=== PATIENT | male | born 1965 | race Caucasian/White ===

== ENCOUNTER 2018-05-07 01:57 | Emergency (ER) | payer OTHER ==
[~2018-05-07] VITALS: Ht 172.7 cm; Wt 63.5 kg
[~2018-05-07 01:57] MED LIST: AMOX250 PO; AMOX500 PO; BENZ100A PO; BUPR100ER PO; CALCNI; CIPR500 PO; CLIN300 PO; CYCL10 PO; Cleocin HCl150 MG PO; DOXY100 PO; HYDACE5 PO; HYDR1TAB94 PO; ITRACONAZOLE PO; LOPE2C PO; Monodox100 MG PO; NAPR550 PO; NOSE SPRAY; Norco 5-325 Ta1 EACH PO; OXYACE5T PO; PENVK500 PO; RXCYCL10 PO; RXERYTOPTH OP; RXHYDACE PO; RXNAPNA550 PO; RXOXYACE PO; TESTOSTERON IM; TRAZ50 PO
[2018-05-07 04:27] LABS: Source, Urine Clean Catch
[2018-05-07 04:30] LABS: Bilirubin, Urine Neg (Neg); Blood, Urine Neg (Neg); Glucose Qualitative, Urine Neg (Neg); Ketones, Urine Neg (Neg); Leukocyte Esterase, Urine 1+ (Neg); Nitrite, Urine Neg (Neg); Protein, Urine 2+ (Neg); Specific Gravity, Urine 1.025 (1.003-1.022); Urobilinogen, Urine NORM (Normal)
[2018-05-07 04:31] LABS: Appearance, Urine Clear (Clear); Color, Urine Yellow (P-Yellow)
[2018-05-07 04:36] LABS: Amorphous Light ({null, 0-Heavy}); Bacteria Few /hpf; Hyaline Casts 50-100 /lpf (0-2); Mucus Light ({null, 0-Heavy}); Red Blood Cells, Urine Not Seen /hpf (0-2); Squamous Epithelial Cells Few /hpf (Few)
[2018-05-07] MEDS ORDERED: BACI500TO TOP (05:03)
== END 2018-05-07 05:12 | disposition home or self-care (01) ==
LOC: ER 01:57
PROVIDERS: Emergency Medicine
DX: L98.9 Disorder of the skin and subcutaneous tissue, unspecified (principal); R39.15 Urgency of urination; R39.89 Other symptoms and signs involving the genitourinary system; Z88.8 Allergy status to other drugs, medicaments and biological substances; F17.210 Nicotine dependence, cigarettes, uncomplicated; F32.9 Major depressive disorder, single episode, unspecified
CPT/HCPCS: 81001; 87086; 99283

== ENCOUNTER 2018-05-10 17:01 | Emergency (ER) | payer OTHER ==
[~2018-05-10] VITALS: Ht 172.7 cm; Wt 70.8 kg
[~2018-05-10 17:01] MED LIST changes: +BACI500TO TOP
[2018-05-10 17:39] LABS: BASOPHILS ABSOLUTE AUTO 0.04 K/mm3 (0.00-0.23); BASOPHILS PERCENT AUTO 1 % (0-2); EOSINOPHILS ABSOLUTE AUTO 0.33 K/mm3 (0.00-0.68); EOSINOPHILS PERCENT AUTO 4 % (0-6); Hemoglobin 12.2 g/dL (13.5-17.5); IMMATURE GRAN ABSOLUTE AUTO 0.02 K/mm3 (0.00-0.10); IMMATURE GRAN PERCENT AUTO 0 % (0-1); LYMPHOCYTES ABSOLUTE AUTO 1.48 K/mm3 (0.84-5.20); LYMPHOCYTES PERCENT AUTO 20 % (21-46); MONOCYTES ABSOLUTE AUTO 0.57 K/mm3 (0.16-1.47); MONOCYTES PERCENT AUTO 8 % (4-13); Mean Corpuscular HGB 28.5 pg (26.0-34.0); Mean Corpuscular HGB Conc 32.1 g/dL (31.5-36.5); Mean Corpuscular Volume 89 fL (80-100); Mean Platelet Volume 8.8 fL (9.1-12.4); NEUTROPHILS ABSOLUTE AUTO 5.03 K/mm3 (1.96-9.15); NEUTROPHILS PERCENT AUTO 67 % (41-73); Platelet Count 298 K/mm3 (150-400); RDW Coefficient Variation 12.3 % (11.7-14.2); RDW Standard Deviation 40.4 fL (35.1-46.3); Red Blood Cell Count 4.28 M/mm3 (4.30-5.90); White Blood Cell Count 7.47 K/mm3 (4.00-11.30)
[2018-05-10 17:52] LABS: Source, Urine Clean Catch
[2018-05-10 17:55] LABS: Appearance, Urine Clear (Clear); Bilirubin, Urine Neg (Neg); Blood, Urine Neg (Neg); Color, Urine Yellow (P-Yellow); Glucose Qualitative, Urine Neg (Neg); Ketones, Urine Neg (Neg); Leukocyte Esterase, Urine Neg (Neg); Nitrite, Urine Neg (Neg); Protein, Urine 1+ (Neg); Specific Gravity, Urine 1.005 (1.003-1.022); Urobilinogen, Urine NORM (Normal)
[2018-05-10 18:28] LABS: Alanine Aminotransfer (ALT/SGP 17 U/L (12-78); Albumin, Blood 3.7 g/dL (3.4-5.0); Albumin/Globulin Ratio 0.9 (0.8-1.8); Alk Phos 132 U/L (50-136); Anion Gap 5 mmol/L (6-16); Aspartate Aminotrans (AST/SGOT 12 U/L (12-37); Bilirubin, Total 0.8 mg/dL (0.1-1.0); Blood Urea Nitrogen 13 mg/dL (8-24); CO2, Blood 28 mmol/L (21-32); Calcium, Blood 8.8 mg/dL (8.5-10.1); Chloride, Blood 106 mmol/L (98-108); Creatinine, Blood 1.08 mg/dL (0.60-1.20); Globulin, Blood 4.3 g/dL (2.2-4.0); Glomerular Filtration Rate >60 (60-); Glucose, Blood 95 mg/dL (70-99); Potassium, Blood 4.4 mmol/L (3.5-5.5); Sodium, Blood 139 mmol/L (136-145)
[2018-05-10] MEDS ORDERED: GAVILAX17 GM PO (19:54)
[2018-05-10] MEDS ORDERED: Flomax0.4 MG PO (19:54)
== END 2018-05-10 20:00 | disposition home or self-care (01) ==
LOC: ER 17:01
PROVIDERS: Physician Assistant
DX: K59.00 Constipation, unspecified (principal); K62.5 Hemorrhage of anus and rectum; F32.9 Major depressive disorder, single episode, unspecified; Z88.8 Allergy status to other drugs, medicaments and biological substances; F17.210 Nicotine dependence, cigarettes, uncomplicated
CPT/HCPCS: 36415; 74176; 80053; 82272; 83690; 85025; 96361; 96374; 99284-25; J2405; J7030

== ENCOUNTER 2018-06-07 20:37 | Emergency (ER) | payer OTHER ==
[~2018-06-07] VITALS: Ht 172.7 cm; Wt 72.6 kg
[~2018-06-07 20:37] MED LIST changes: +Flomax0.4 MG PO; +GAVILAX17 GM PO
[2018-06-07 21:23] LABS: BASOPHILS ABSOLUTE AUTO 0.03 K/mm3 (0.00-0.23); BASOPHILS PERCENT AUTO 0 % (0-2); EOSINOPHILS ABSOLUTE AUTO 0.41 K/mm3 (0.00-0.68); EOSINOPHILS PERCENT AUTO 4 % (0-6); Hematocrit 34.4 % (37.0-53.0); Hemoglobin 11.2 g/dL (13.5-17.5); IMMATURE GRAN ABSOLUTE AUTO 0.02 K/mm3 (0.00-0.10); IMMATURE GRAN PERCENT AUTO 0 % (0-1); LYMPHOCYTES ABSOLUTE AUTO 1.92 K/mm3 (0.84-5.20); LYMPHOCYTES PERCENT AUTO 19 % (21-46); MONOCYTES ABSOLUTE AUTO 0.46 K/mm3 (0.16-1.47); MONOCYTES PERCENT AUTO 5 % (4-13); Mean Corpuscular HGB 28.4 pg (26.0-34.0); Mean Corpuscular HGB Conc 32.6 g/dL (31.5-36.5); Mean Corpuscular Volume 87 fL (80-100); Mean Platelet Volume 8.8 fL (9.1-12.4); NEUTROPHILS ABSOLUTE AUTO 7.23 K/mm3 (1.96-9.15); NEUTROPHILS PERCENT AUTO 72 % (41-73); Platelet Count 277 K/mm3 (150-400); RDW Coefficient Variation 12.1 % (11.7-14.2); RDW Standard Deviation 39.4 fL (35.1-46.3); Red Blood Cell Count 3.95 M/mm3 (4.30-5.90); White Blood Cell Count 10.07 K/mm3 (4.00-11.30)
[2018-06-07 21:38] LABS: Troponin I <0.015 ng/mL (0.000-0.040)
[2018-06-07 21:39] LABS: Alanine Aminotransfer (ALT/SGP 23 U/L (12-78); Albumin, Blood 3.7 g/dL (3.4-5.0); Alk Phos 101 U/L (50-136); Anion Gap 7 mmol/L (6-16); Aspartate Aminotrans (AST/SGOT 20 U/L (12-37); Bilirubin, Total 0.4 mg/dL (0.1-1.0); Blood Urea Nitrogen 15 mg/dL (8-24); Bun/Creatinine Ratio 14.2 (12.0-20.0); CO2, Blood 26 mmol/L (21-32); Calcium, Blood 8.8 mg/dL (8.5-10.1); Chloride, Blood 106 mmol/L (98-108); Creatinine, Blood 1.06 mg/dL (0.60-1.20); Globulin, Blood 3.8 g/dL (2.2-4.0); Glomerular Filtration Rate >60 (60-); Glucose, Blood 73 mg/dL (70-99); Potassium, Blood 4.2 mmol/L (3.5-5.5); Sodium, Blood 139 mmol/L (136-145); Total Protein, Blood 7.5 g/dL (6.4-8.2)
== END 2018-06-08 00:57 | disposition home or self-care (01) ==
LOC: ER 20:37
PROVIDERS: Physician Assistant
DX: M79.631 Pain in right forearm (principal); Z88.8 Allergy status to other drugs, medicaments and biological substances; F32.9 Major depressive disorder, single episode, unspecified; F17.210 Nicotine dependence, cigarettes, uncomplicated
CPT/HCPCS: 36415; 71046; 80053; 83690; 84484; 85025; 93005; 93010; 96374; 96375; 99284-25; J1885; J2405; J3010

== ENCOUNTER 2018-06-26 04:42 | Emergency (ER) | payer OTHER ==
[~2018-06-26] VITALS: Ht 172.7 cm; Wt 63.5 kg
[2018-06-26 05:21] LABS: BASOPHILS ABSOLUTE AUTO 0.07 K/mm3 (0.00-0.23); BASOPHILS PERCENT AUTO 1 % (0-2); EOSINOPHILS ABSOLUTE AUTO 0.51 K/mm3 (0.00-0.68); EOSINOPHILS PERCENT AUTO 4 % (0-6); Hematocrit 39.6 % (37.0-53.0); Hemoglobin 12.6 g/dL (13.5-17.5); IMMATURE GRAN ABSOLUTE AUTO 0.08 K/mm3 (0.00-0.10); IMMATURE GRAN PERCENT AUTO 1 % (0-1); LYMPHOCYTES ABSOLUTE AUTO 2.89 K/mm3 (0.84-5.20); LYMPHOCYTES PERCENT AUTO 21 % (21-46); MONOCYTES ABSOLUTE AUTO 0.96 K/mm3 (0.16-1.47); MONOCYTES PERCENT AUTO 7 % (4-13); Mean Corpuscular HGB 28.5 pg (26.0-34.0); Mean Corpuscular HGB Conc 31.8 g/dL (31.5-36.5); Mean Corpuscular Volume 90 fL (80-100); Mean Platelet Volume 8.9 fL (9.1-12.4); NEUTROPHILS ABSOLUTE AUTO 9.51 K/mm3 (1.96-9.15); NEUTROPHILS PERCENT AUTO 68 % (41-73); Platelet Count 340 K/mm3 (150-400); RDW Coefficient Variation 12.3 % (11.7-14.2); RDW Standard Deviation 40.7 fL (35.1-46.3); Red Blood Cell Count 4.42 M/mm3 (4.30-5.90); White Blood Cell Count 14.02 K/mm3 (4.00-11.30)
[2018-06-26 05:42] LABS: Alanine Aminotransfer (ALT/SGP 145 U/L (12-78); Albumin, Blood 3.9 g/dL (3.4-5.0); Albumin/Globulin Ratio 0.9 (0.8-1.8); Alk Phos 207 U/L (50-136); Anion Gap 9 mmol/L (6-16); Aspartate Aminotrans (AST/SGOT 79 U/L (12-37); Bilirubin, Total 0.3 mg/dL (0.1-1.0); Blood Urea Nitrogen 16 mg/dL (8-24); Bun/Creatinine Ratio 15.4 (12.0-20.0); CO2, Blood 24 mmol/L (21-32); Calcium, Blood 8.8 mg/dL (8.5-10.1); Chloride, Blood 107 mmol/L (98-108); Creatinine, Blood 1.04 mg/dL (0.60-1.20); Globulin, Blood 4.5 g/dL (2.2-4.0); Glomerular Filtration Rate >60 (60-); Glucose, Blood 88 mg/dL (70-99); Potassium, Blood 3.5 mmol/L (3.5-5.5); Sodium, Blood 140 mmol/L (136-145); Total Protein, Blood 8.4 g/dL (6.4-8.2); Troponin I <0.015 ng/mL (0.000-0.040)
[2018-06-26] MEDS ORDERED: Bactrim Ds Tab1 EACH PO (06:29)
[2018-06-26] MEDS ORDERED: Mupirocin22 GM TOP (06:29)
[2018-06-26 06:50] LABS: D-Dimer, Quantitative 1.11 mg/L FEU (0.00-0.52)
== END 2018-06-26 09:14 | disposition home or self-care (01) ==
LOC: ER 04:42
PROVIDERS: Emergency Medicine
DX: L03.116 Cellulitis of left lower limb (principal); L03.115 Cellulitis of right lower limb; R07.9 Chest pain, unspecified; L08.9 Local infection of the skin and subcutaneous tissue, unspecified; F15.10 Other stimulant abuse, uncomplicated; F11.10 Opioid abuse, uncomplicated; Z88.8 Allergy status to other drugs, medicaments and biological substances
CPT/HCPCS: 36415; 71046; 71260; 80053; 83690; 84484; 85025; 85379; 93005; 93010; 99285-25; Q9967

== ENCOUNTER 2018-09-25 02:26 | Emergency (ER) | payer OTHER ==
[~2018-09-25] VITALS: Ht 172.7 cm; Wt 68.0 kg
[~2018-09-25 02:26] MED LIST changes: +Bactrim Ds Tab1 EACH PO; +Mupirocin22 GM TOP
[2018-09-25 04:00] LABS: BASOPHILS ABSOLUTE AUTO 0.05 K/mm3 (0.00-0.23); BASOPHILS PERCENT AUTO 1 % (0-2); EOSINOPHILS ABSOLUTE AUTO 0.41 K/mm3 (0.00-0.68); EOSINOPHILS PERCENT AUTO 4 % (0-6); Hematocrit 35.5 % (37.0-53.0); Hemoglobin 11.4 g/dL (13.5-17.5); IMMATURE GRAN ABSOLUTE AUTO 0.04 K/mm3 (0.00-0.10); IMMATURE GRAN PERCENT AUTO 0 % (0-1); LYMPHOCYTES ABSOLUTE AUTO 2.97 K/mm3 (0.84-5.20); LYMPHOCYTES PERCENT AUTO 27 % (21-46); MONOCYTES ABSOLUTE AUTO 0.91 K/mm3 (0.16-1.47); MONOCYTES PERCENT AUTO 8 % (4-13); Mean Corpuscular HGB 27.7 pg (26.0-34.0); Mean Corpuscular HGB Conc 32.1 g/dL (31.5-36.5); Mean Corpuscular Volume 86 fL (80-100); Mean Platelet Volume 8.6 fL (9.1-12.4); NEUTROPHILS ABSOLUTE AUTO 6.53 K/mm3 (1.96-9.15); NEUTROPHILS PERCENT AUTO 60 % (41-73); Platelet Count 275 K/mm3 (150-400); RDW Coefficient Variation 13.4 % (11.7-14.2); RDW Standard Deviation 42.2 fL (35.1-46.3); Red Blood Cell Count 4.11 M/mm3 (4.30-5.90); White Blood Cell Count 10.91 K/mm3 (4.00-11.30)
[2018-09-25 04:16] LABS: Anion Gap 7 mmol/L (6-16); Blood Urea Nitrogen 13 mg/dL (8-24); Bun/Creatinine Ratio 12.1 (12.0-20.0); CO2, Blood 26 mmol/L (21-32); Calcium, Blood 8.5 mg/dL (8.5-10.1); Chloride, Blood 105 mmol/L (98-108); Creatinine, Blood 1.07 mg/dL (0.60-1.20); Ethanol (Alcohol), Blood, Med <3 mg/dL; Glomerular Filtration Rate >60 (60-); Glucose, Blood 99 mg/dL (70-99); Sodium, Blood 138 mmol/L (136-145)
[2018-09-25] MEDS ORDERED: Percocet 10-321 EACH PO (06:09)
== END 2018-09-25 07:31 | disposition home or self-care (01) ==
LOC: ER 02:26
PROVIDERS: Emergency Medicine
DX: S09.90XA Unspecified injury of head, initial encounter (principal); S00.432A Contusion of left ear, initial encounter; F32.9 Major depressive disorder, single episode, unspecified; F17.210 Nicotine dependence, cigarettes, uncomplicated; Z88.6 Allergy status to analgesic agent; Z88.8 Allergy status to other drugs, medicaments and biological substances; Z79.899 Other long term (current) drug therapy; W22.8XXA Striking against or struck by other objects, initial encounter
CPT/HCPCS: 36415; 70450; 70486; 71260; 72125; 74177; 80048; 85025; 99284-25; G0480; L0160; Q9967

== ENCOUNTER 2018-09-27 23:09 | Emergency (ER) | payer OTHER ==
[~2018-09-27] VITALS: Ht 172.7 cm; Wt 70.3 kg
[~2018-09-27 23:09] MED LIST changes: +Percocet 10-321 EACH PO
[2018-09-28 00:55] LABS: Source, Urine Clean Catch
[2018-09-28 00:58] LABS: BASOPHILS ABSOLUTE AUTO 0.05 K/mm3 (0.00-0.23); BASOPHILS PERCENT AUTO 1 % (0-2); EOSINOPHILS ABSOLUTE AUTO 0.49 K/mm3 (0.00-0.68); EOSINOPHILS PERCENT AUTO 5 % (0-6); Hematocrit 37.5 % (37.0-53.0); Hemoglobin 11.7 g/dL (13.5-17.5); IMMATURE GRAN ABSOLUTE AUTO 0.03 K/mm3 (0.00-0.10); IMMATURE GRAN PERCENT AUTO 0 % (0-1); LYMPHOCYTES ABSOLUTE AUTO 2.43 K/mm3 (0.84-5.20); LYMPHOCYTES PERCENT AUTO 26 % (21-46); MONOCYTES ABSOLUTE AUTO 0.92 K/mm3 (0.16-1.47); MONOCYTES PERCENT AUTO 10 % (4-13); Mean Corpuscular HGB 27.9 pg (26.0-34.0); Mean Corpuscular HGB Conc 31.2 g/dL (31.5-36.5); Mean Platelet Volume 8.9 fL (9.1-12.4); NEUTROPHILS PERCENT AUTO 58 % (41-73); Platelet Count 282 K/mm3 (150-400); RDW Coefficient Variation 13.6 % (11.7-14.2); RDW Standard Deviation 44.7 fL (35.1-46.3); White Blood Cell Count 9.22 K/mm3 (4.00-11.30)
[2018-09-28 00:59] LABS: Mean Corpuscular Volume 89 fL (80-100)
[2018-09-28 01:00] LABS: Appearance, Urine Hazy (Clear); Bilirubin, Urine Neg (Neg); Blood, Urine 3+ (Neg); Color, Urine Yellow (P-Yellow); Glucose Qualitative, Urine Neg (Neg); Ketones, Urine Neg (Neg); Leukocyte Esterase, Urine 3+ (Neg); Nitrite, Urine Neg (Neg); Protein, Urine 3+ (Neg); Specific Gravity, Urine 1.015 (1.003-1.022); Urobilinogen, Urine NORM (Normal)
[2018-09-28 01:09] LABS: Red Blood Cells, Urine 0-2 /hpf (0-2); White Blood Cells, Urine TNTC /hpf (0-5)
[2018-09-28 01:10] LABS: Bacteria Many /hpf; Squamous Epithelial Cells Not Seen /hpf (Few); Yeast/Fungi Urine Few /hpf
[2018-09-28 01:14] LABS: Alanine Aminotransfer (ALT/SGP 48 U/L (12-78); Albumin, Blood 3.3 g/dL (3.4-5.0); Albumin/Globulin Ratio 0.7 (0.8-1.8); Alk Phos 174 U/L (50-136); Anion Gap 5 mmol/L (6-16); Aspartate Aminotrans (AST/SGOT 20 U/L (12-37); Bilirubin, Total 0.3 mg/dL (0.1-1.0); Blood Urea Nitrogen 11 mg/dL (8-24); Bun/Creatinine Ratio 10.7 (12.0-20.0); CO2, Blood 28 mmol/L (21-32); Calcium, Blood 8.5 mg/dL (8.5-10.1); Chloride, Blood 106 mmol/L (98-108); Creatinine, Blood 1.03 mg/dL (0.60-1.20); Globulin, Blood 4.7 g/dL (2.2-4.0); Glomerular Filtration Rate >60 (60-); Glucose, Blood 91 mg/dL (70-99); Potassium, Blood 4.2 mmol/L (3.5-5.5); Sodium, Blood 139 mmol/L (136-145)
[2018-09-28] MEDS ORDERED: Bactrim Ds Tab1 EACH PO (02:37)
== END 2018-09-28 02:42 | disposition home or self-care (01) ==
LOC: ER 23:09
PROVIDERS: Emergency Medicine
DX: S09.22XA Traumatic rupture of left ear drum, initial encounter (principal); N39.0 Urinary tract infection, site not specified; F32.9 Major depressive disorder, single episode, unspecified; F17.210 Nicotine dependence, cigarettes, uncomplicated; W01.190A Fall on same level from slipping, tripping and stumbling with subsequent striking against furniture, initial encounter
CPT/HCPCS: 70480; 80053; 81001; 85025; 99284-25

== ENCOUNTER → 2018-10-12 | Outpatient (CLI) | payer OTHER ==
[~2018-10-12] MED LIST changes: +ACET325UDC PO; +AMOCLA875 PO; +BISA5EC; +BISA5EC PO; +CEFAZOLIN2 GM/100 M IV; +CEPH500 PO; +Docusil100 MG PO; +Florastor250 MG PO; +HYDMOR2 PO; +KETO10 PO; +LIDOCAINE PAIN1 EACH TOP; +LISI5 PO; +LORA1 PO; +METO25ER PO; +MIRALAX17 GM PO; +NICO21TP TOP; +ONDA4ODT MM; +PROM25 PO; +PYRI100 PO; +RIFA300 PO; +SENN187 PO; +Voltaren100 GM TOP
[2018-10-12 16:28] LABS: Source, Urine Clean Catch
[2018-10-12 17:47] LABS: Bilirubin, Urine Neg (Neg); Blood, Urine 3+ (Neg); Glucose Qualitative, Urine Neg (Neg); Ketones, Urine Neg (Neg); Leukocyte Esterase, Urine 3+ (Neg); Nitrite, Urine Pos (Neg); Protein, Urine 3+ (Neg); Urobilinogen, Urine NORM (Normal)
[2018-10-12 17:55] LABS: Appearance, Urine Cloudy (Clear); Color, Urine Yellow (P-Yellow); Squamous Epithelial Cells Not Seen /hpf (Few)
[2018-10-12 17:56] LABS: White Blood Cells, Urine TNTC /hpf (0-5)
[2018-10-12 17:58] LABS: Bacteria Mod /hpf
== END | disposition home or self-care (01) ==
LOC: LAB UCHC 12:14 → LAB SHORT 12:14
PROVIDERS: Family Medicine
DX: R30.0 Dysuria (principal)
CPT/HCPCS: 81001; 87086

== ENCOUNTER 2019-01-01 08:27 | Inpatient (IN) | payer OTHER ==
[~2019-01-01] VITALS: Ht 177.8 cm; Wt 69.4 kg
[~2019-01-01 08:27] MED LIST changes: -ACET325UDC PO; -AMOCLA875 PO; -BISA5EC; -BISA5EC PO; -CEFAZOLIN2 GM/100 M IV; -CEPH500 PO; -Docusil100 MG PO; -Florastor250 MG PO; -HYDMOR2 PO; -KETO10 PO; -LIDOCAINE PAIN1 EACH TOP; -LISI5 PO; -LORA1 PO; -METO25ER PO; -MIRALAX17 GM PO; -NICO21TP TOP; -ONDA4ODT MM; -PROM25 PO; -PYRI100 PO; -RIFA300 PO; -SENN187 PO; -Voltaren100 GM TOP
[2019-01-01 08:55] LABS: Source, Urine Clean Catch
[2019-01-01 08:57] LABS: BASOPHILS ABSOLUTE AUTO 0.01 K/mm3 (0.00-0.23); BASOPHILS PERCENT AUTO 0 % (0-2); EOSINOPHILS ABSOLUTE AUTO 0.04 K/mm3 (0.00-0.68); EOSINOPHILS PERCENT AUTO 1 % (0-6); Hematocrit 30.5 % (37.0-53.0); Mean Corpuscular HGB 28.2 pg (26.0-34.0); Mean Corpuscular HGB Conc 32.8 g/dL (31.5-36.5); Mean Corpuscular Volume 86 fL (80-100); Mean Platelet Volume 8.3 fL (9.1-12.4); Platelet Count 227 K/mm3 (150-400); RDW Coefficient Variation 11.9 % (11.7-14.2); RDW Standard Deviation 37.7 fL (35.1-46.3); Red Blood Cell Count 3.54 M/mm3 (4.30-5.90)
[2019-01-01 09:00] LABS: IMMATURE GRAN ABSOLUTE AUTO 0.02 K/mm3 (0.00-0.10); IMMATURE GRAN PERCENT AUTO 0 % (0-1); LYMPHOCYTES ABSOLUTE AUTO 0.42 K/mm3 (0.84-5.20); LYMPHOCYTES PERCENT AUTO 7 % (21-46); MONOCYTES ABSOLUTE AUTO 0.02 K/mm3 (0.16-1.47); MONOCYTES PERCENT AUTO 0 % (4-13); NEUTROPHILS ABSOLUTE AUTO 5.19 K/mm3 (1.96-9.15); NEUTROPHILS PERCENT AUTO 91 % (41-73)
[2019-01-01 09:07] LABS: Bilirubin, Urine Neg (Neg); Blood, Urine Neg (Neg); Glucose Qualitative, Urine Neg (Neg); Ketones, Urine Neg (Neg); Leukocyte Esterase, Urine Neg (Neg); Nitrite, Urine Neg (Neg); Protein, Urine 2+ (Neg); Urobilinogen, Urine NORM (Normal)
[2019-01-01 09:08] LABS: Albumin, Blood 2.9 g/dL (3.4-5.0); Albumin/Globulin Ratio 0.7 (0.8-1.8); Bilirubin, Total 0.6 mg/dL (0.1-1.0); Bun/Creatinine Ratio 15.8 (12.0-20.0); Calcium, Blood 8.4 mg/dL (8.5-10.1); Creatinine, Blood 1.33 mg/dL (0.60-1.20); Globulin, Blood 4.4 g/dL (2.2-4.0); Potassium, Blood 4.5 mmol/L (3.5-5.5); Total Protein, Blood 7.3 g/dL (6.4-8.2)
[2019-01-01 09:25] LABS: CPK Creatine Kinase 75 U/L (39-308)
[2019-01-01 09:26] LABS: Creatine Kinase MB <1.0 ng/mL (0.0-3.6); Creatine Kinase MB Index Unable to Calculate (0.0-4.0)
[2019-01-01 09:30] LABS: U Amphetamine Screen DETECTED; U Barbituate Screen Not Detected; U Benzodiazapine Screen Not Detected; U Cocaine Screen Not Detected; U Methadone Screen Not Detected; U Methamphetamine Screen DETECTED
[2019-01-01 09:31] LABS: U Buprenorphine Screen Not Detected; U Cannabinoids Screen Not Detected; U Opiates Screen DETECTED; U Oxycodone Screen Not Detected; U Phencyclidine Screen Not Detected; U Propoxyphene Screen Not Detected
[2019-01-01 09:35] LABS: Appearance, Urine Clear (Clear); Color, Urine Yellow (P-Yellow)
[2019-01-01 09:36] LABS: Red Blood Cells, Urine 0-2 /hpf (0-2); Squamous Epithelial Cells Rare /hpf (Few); White Blood Cells, Urine 0-2 /hpf (0-5)
[2019-01-01 09:37] LABS: Bacteria Not Seen /hpf
--- NOTE | 2019-01-01 16:31 | NUR ---
ADMIT NOTE/SHIFT SUMMARY RECEIVED REPORT FROM MATTHEW RIVERA RN IN ED. PT TO ROOM AT 1320 VIA GURNEY. PT SBA TRANSFERED TO BED. ATTEMPTED TO ORIENT PT TO ROOM AND CALL LIGHT SYSTEM, ATTEMTED TO EDUCATED PT ON FALL RISK AND USE OF CALL LIGHT. PT RESPONDS TO VERBAL/TACTILE STIMULI, ANSWER ONE QUESTIONS AND FALLS BACK TO SLEEPING QUICKLY. PT ORIENTED TO SELF AND PLACE, UNALBE.UNWILLING TO ANSWER DATE/EVENT. PER REPORT FROM ED RN PT ADMITTED TO USING METH TODAY. PT BROUGHT UP ON 2L O2 VIA NC, PER RERORT PT STARTED DESATURATING IN HIS SLEEP. SPO2 >94% ON 2; O2 VIA NC. LS CLEAR. RESP EVEN AND UNLABORED. PT DENIES PAIN AND NAUSEA WHEN ASKED. PT JUMPS UP OUT OF BED, NOT USING CALL LIGHT WHEN NEEDS TO USE THE URINAL. PT EDUCATED OF FALL RISK, BED ALARM IN PLACE. PT RECEIVING IV ANTIBITOICS. VSS. NO OTHER ACUTE CHANGES NOTED DURING SHIFT. WILL CONTINUE TO MONITOR UNTIL REPORT GIVEN TO ONCOMING RN
--- NOTE | 2019-01-02 06:27 | NUR ---
SHIFT SUMMARY PATIENT VERY DROWSY THROUGHOUT THE SHIFT. PATIENT EASILY AWAKENS TO TOUCH AND VERBAL STIMULI BUT THEN QUICKLY FALLS BACK ASLEEP. PATIENT APPEARS ALERT AND ORIENTED BUT DOES FALL ASLEEP IN THE MIDDLE OF SPEAKING. PATIENT SET THE BED ALARM OFF FREQUENTLY THROUGHOUT THE NIGHT WHEN GETTING UP TO USE THE URINAL AT THE BEDSIDE. HOWEVER, PATIENT HAS USED THE CALL LIGHT SEVERAL TIMES THIS MORNING TO LET STAFF KNOW HE NEEDS TO USE THE URINAL AND TO REQUSET FOOD AND DRINK. PATIENT DOES CONTINUE TO BE VERY DROWSY THIS MORNING. PATIENT HAD SEVERAL VISITORS THROUGHOUT THE NIGHT. IV FLUIDS RUNNING PER ORDERS, IV ABX GIVEN PER ORDERS. PATIENT CURRENTLY APPEARS TO BE ASLEEP. BED IN LOW, LOCKED POSITION, CALL LIGHT WITHIN REACH AND BED ALARM ON. WILL CONTINUE TO MONITOR PATIENT AND REPORT TO ONCOMING RN.
[2019-01-02 08:24] LABS: Hematocrit 30.3 % (37.0-53.0); Hemoglobin 9.5 g/dL (13.5-17.5); Mean Corpuscular HGB 27.9 pg (26.0-34.0); Mean Corpuscular HGB Conc 31.4 g/dL (31.5-36.5); Mean Platelet Volume 8.7 fL (9.1-12.4); Platelet Count 213 K/mm3 (150-400); RDW Coefficient Variation 12.3 % (11.7-14.2); RDW Standard Deviation 40.1 fL (35.1-46.3); White Blood Cell Count 14.74 K/mm3 (4.00-11.30)
[2019-01-02 08:25] LABS: Mean Corpuscular Volume 89 fL (80-100)
[2019-01-02 08:44] LABS: Anion Gap 3 mmol/L (6-16); Blood Urea Nitrogen 17 mg/dL (8-24); Bun/Creatinine Ratio 15.5 (12.0-20.0); CO2, Blood 27 mmol/L (21-32); Calcium, Blood 8.2 mg/dL (8.5-10.1); Chloride, Blood 111 mmol/L (98-108); Glomerular Filtration Rate >60 (60-); Glucose, Blood 109 mg/dL (70-99); Potassium, Blood 4.3 mmol/L (3.5-5.5); Sodium, Blood 141 mmol/L (136-145)
--- NOTE | 2019-01-02 10:00 | NUR ---
ASSUMED CARE PT ALERT AND ORIENTED. VS STABLE. O2 SATS REMAIN ABOVE 90% ON RA. PT STATES HE IS ACHEY ALL OVER, BUT DENIES A NEED FOR PAIN MEDICAITON. PT GIVEN A WARM BLANKET AND REPOSITIONING HIMSELF IN BED. DR. MCKEON IN THIS AM WITH STATUS CHANGE TO MEDICAL. REPORT CALLED TO MEDICAL FLOOR RN. PT TAKEN UP BY WHEELCHAIR.
--- NOTE | 2019-01-02 10:22 | NUR ---
Pt arrived to unit with HOLLI Bowden via w/c. Pt transferred self over to bed appropriately. Nephew is at bedside. Pt oriented to room and call light. A/O x 3. Independent in room, no tele at this point, continent.
--- NOTE | 2019-01-02 10:57 | NUR ---
Per Dr. Crooks, LR DC'd due to patient tolerating PO intake.
--- NOTE | 2019-01-02 11:08 | NUR ---
Echocardiogram completed.
--- NOTE | 2019-01-02 12:02 | NUR ---
Patient went outside for cigarette with nephew. Tamper evident tape in place.
--- NOTE | 2019-01-02 12:38 | NUR ---
Pt returned from going outside. Tamper evident tape intact.
--- NOTE | 2019-01-02 16:08 | NUR ---
Patient taken outside via w/c by nephew for a cigarette. Saline locked and Tamper Evident Tape in place.
--- NOTE | 2019-01-02 16:25 | NUR ---
Patient returned from going outside. Tamper Evident tape intact. Patient back in room.
--- NOTE | 2019-01-02 16:42 | NUR ---
Patient's [id number] and brother (Shelly and Jesse) called wanting an update on patient's status. Patient gave this RN permission to speak to the family about his status.
--- NOTE | 2019-01-02 16:44 | NUR ---
Pt c/o nausea and had an episode of vomiting. Medicated per EMAR for nausea. Pt states feeling a little better.
--- NOTE | 2019-01-02 17:19 | NUR ---
Shift Summary Patient transferred from PCU this afternoon. Independent in room and to the bathroom. A/Ox4 and cooperative with care. Able to make needs knowm. VSS, afebrile, on RA. Medicated for pain and nausea once. Pt takes meds whole. No other acute changes this shift.
--- NOTE | 2019-01-02 18:39 | NUR ---
Physician notified Dr. Crooks notified RE: possible withdraw symptoms (sweating, nausea/vomiting, muscle aches). See orders and EMAR.
[2019-01-02 20:12] LABS: Vancomycin, Trough 10.9 ug/mL (5.0-10.0)
--- NOTE | 2019-01-03 05:22 | NUR ---
SHIFT SUMMARY: PT IS ALERT AND ORIENTED, LETHARGIC AT TIMES. PT ANXIOUS AT TIMES, EXHIBITING WITHDRAWAL SYMPTOMS INTERMITTENTLY, MEDICATING PER EMAR. PT OUTSIDE TO SMOKE ON SEVERAL OCCASIONS WITH NEPHEW, NEPHEW IN THE ROOM OVERNIGHT. TAMPER TAPE PUT ON IV'S WHEN GOING OUTSIDE. PT SLEPT INTERMITTENTLY THROUGHOUT THE NIGHT. PT WOULD NOT WAKE UP FOR MORNING LAB DRAW, LAB TO RETURN AROUND 0600 TO TRY AGAIN. CONTINUOUS OXIMETRY IN PLACE. WILL CONTINUE TO MONITOR.
[2019-01-03 06:21] LABS: Hematocrit 28.9 % (37.0-53.0); Hemoglobin 9.3 g/dL (13.5-17.5); Mean Corpuscular HGB 28.2 pg (26.0-34.0); Mean Corpuscular HGB Conc 32.2 g/dL (31.5-36.5); Mean Corpuscular Volume 88 fL (80-100); Mean Platelet Volume 8.6 fL (9.1-12.4); Platelet Count 234 K/mm3 (150-400); RDW Standard Deviation 38.8 fL (35.1-46.3); White Blood Cell Count 13.12 K/mm3 (4.00-11.30)
[2019-01-03 06:37] LABS: Anion Gap 7 mmol/L (6-16); Blood Urea Nitrogen 13 mg/dL (8-24); CO2, Blood 25 mmol/L (21-32); Calcium, Blood 8.4 mg/dL (8.5-10.1); Chloride, Blood 113 mmol/L (98-108); Creatinine, Blood 1.08 mg/dL (0.60-1.20); Glomerular Filtration Rate >60 (60-); Glucose, Blood 96 mg/dL (70-99); Potassium, Blood 3.7 mmol/L (3.5-5.5); Sodium, Blood 145 mmol/L (136-145)
--- NOTE | 2019-01-03 17:01 | NUR ---
SHIFT SUMMARY NO ACUTE CHANGES. PATIENT MEDICATED X 1 FOR HEADACHE AND SEVERAL TIMES FOR WITHDRAWAL SYMPTOMS. PATIENT TAKEN OUTSIDE TO SMOKE SEVERAL TIMES BY FAMILY/FRIENDS. PATIENT TO BE NPO AT MIDNIGHT FOR PONCHO AT APPROXIMATELY 10AM TOMORROW. PATIENT UP SBA TO BR. CALL LIGHT IN REACH.
--- NOTE | 2019-01-03 23:23 | NUR ---
out twice with friend to smoke, hard to arouse but family requests pain medication before available per prescription, family became excited when found smoking, called security due to denial of smoking dispite smoke in room, security was very professional but firm r/hospital policy and the repercussions of smoking in the room, pt and others took it well and went out to smoke, no indication of tampering with IV noted upon return, due to somnolence only giving half a dose of pain medication, call light in reach, family at bedsid, room air, saline locked
--- NOTE | 2019-01-04 06:39 | NUR ---
sleepy, but insisted on going out to smoke, friends/family in room for whole night, requested medication dispite lack of supporting evidence, gave minimum dose to reduce anxiety caused by lack of medication, call light in reach, saline locked, room air, will continue to monitor and treat until share bsr with day staff
[2019-01-04 09:01] LABS: International Normalized Ratio 1.03; Prothrombin Time Results 10.9 Sec (9.7-11.5)
[2019-01-04 09:14] LABS: Anion Gap 6 mmol/L (6-16); Blood Urea Nitrogen 6 mg/dL (8-24); Bun/Creatinine Ratio 6.1 (12.0-20.0); CO2, Blood 26 mmol/L (21-32); Calcium, Blood 8.3 mg/dL (8.5-10.1); Chloride, Blood 113 mmol/L (98-108); Creatinine, Blood 0.99 mg/dL (0.60-1.20); Glomerular Filtration Rate >60 (60-); Glucose, Blood 91 mg/dL (70-99); Magnesium, Blood 1.7 mg/dL (1.6-2.4); Potassium, Blood 3.5 mmol/L (3.5-5.5); Sodium, Blood 145 mmol/L (136-145)
[2019-01-04 09:18] LABS: Vancomycin, Trough 11.5 ug/mL (5.0-10.0)
--- NOTE | 2019-01-04 11:04 | NUR ---
PT TOLERATED PONCHO WELL. DR WHIPPLE WAS IN TO SEE PT; PT OPENED EYES AND WAS RESPONSIVE TO COMMANDS - SEDATION SCALE 3 - DR WHIPPLE APPROVED F0R PT TO RETURN TO ROOM 303 TO CONTINUE RECOVERY.
--- NOTE | 2019-01-04 16:41 | NUR ---
SHIFT SUMMARY NO ACUTE CHANGES. PATIENT DENIES PAIN, NAUSEA, AND SHORTNESS OF BREATH. PATIENT UP SBA IN ROOM. FRIENDS AT BEDSIDE MOST OF SHIFT. PATIENT HAD PONCHO TODAY. PATIENT SLEEPING MOST OF AFTERNOON. CONTINUOUS OXIMETRY IN PLACE. CALL LIGHT IN REACH.
[2019-01-05 04:58] LABS: Hematocrit 29.8 % (37.0-53.0); Hemoglobin 9.6 g/dL (13.5-17.5); Mean Corpuscular HGB 27.6 pg (26.0-34.0); Mean Corpuscular HGB Conc 32.2 g/dL (31.5-36.5); Mean Corpuscular Volume 86 fL (80-100); Mean Platelet Volume 8.5 fL (9.1-12.4); Platelet Count 307 K/mm3 (150-400); RDW Coefficient Variation 11.9 % (11.7-14.2); RDW Standard Deviation 36.5 fL (35.1-46.3); Red Blood Cell Count 3.48 M/mm3 (4.30-5.90); White Blood Cell Count 8.81 K/mm3 (4.00-11.30)
[2019-01-05 05:51] LABS: Anion Gap 7 mmol/L (6-16); Blood Urea Nitrogen 9 mg/dL (8-24); Bun/Creatinine Ratio 8.9 (12.0-20.0); CO2, Blood 25 mmol/L (21-32); Calcium, Blood 8.4 mg/dL (8.5-10.1); Chloride, Blood 112 mmol/L (98-108); Creatinine, Blood 1.01 mg/dL (0.60-1.20); Glomerular Filtration Rate >60 (60-); Glucose, Blood 101 mg/dL (70-99); Potassium, Blood 3.7 mmol/L (3.5-5.5); Sodium, Blood 144 mmol/L (136-145)
--- NOTE | 2019-01-05 06:45 | NUR ---
drowsy, but a+o when awake, anxious, sweaty with a headache from withdrawl, spent the majority of the shift asleep, knows what to say to get desired medication, call light in reach, saline locked, abx infused with no s/sx of infection or infiltration, will share bsr with staff and pt
--- NOTE | 2019-01-05 18:07 | NUR ---
SHIFT SUMMARY. A&OX3, INDEPENDENT IN ROOM, PT'S FRIEND AT BEDSIDE THROUGHOUT MOST OF THE SHIFT. PT OUT TO SMOKE PERIODICALLY THROUGHOUT SHIFT. PT WITH CIWA 4-8 THROUGHOUT SHIFT, MANAGED WELL WITH CURRENT ORDERS. PT REPORTS PAIN TO L LOWER BACK THAT IS MANAGED WELL WITH LIDOCAINE PATCH. PT REPORTS INTERMITTENT H/A. MILD NAUSEA WITHOUT EMESIS. VISABLY DIAPHORETIC AND MILD TREMORS. PT REPORTS THAT HE IS ATTEMPTING TO GO TO TREATMENT FOR HEROIN ADDICTION. PT HAS TWO YOUNG MALE VISITORS ENTER THE ROOM AT THIS TIME.
--- NOTE | 2019-01-05 23:25 | NUR ---
sitting up watching tv with friend/family, stated that it was time for his shot, assessed for wd and only found LOPEZ which has been consitent for this shift, provided tylenol for lopez, will continue to monitor and treat as appropriate. Informed CN of discussion
--- NOTE | 2019-01-06 06:41 | NUR ---
a+o, assessment does not show enough symptoms to call for medication for withdrawls, continues to request, explained procedure, call light in reach, saline locked, rm air up to smoke, will continue to monitor and treat as appropriate until bsr shared with pt and day staff
--- NOTE | 2019-01-06 17:04 | NUR ---
PT REQUESTS THAT POINT OF CONTACT BE HIS DAUGHTER EDGARD HOLDEN [phone]. PLEASE CONTACT IF ANY CHANGES IN PT STATUS.
--- NOTE | 2019-01-06 17:57 | NUR ---
SHIFT SUMMARY. PT WITH OPIOD WITHDRAWL SYMPTOMS THIS AM AND AFTERNOON, MANAGED WELL WITH CURRENT ORDERS. PT C/O LOWER BACK PAIN, MANAGED WITH LIDODERM PATCH AND APAP. PT ALSO REPORTING NAUSEA WITH DRY HEAVES SECONDARY TO OPIOD WITHDRAWL. DAUGHTER IN TO VISIT FROM [place] THIS AFTERNOON.
--- NOTE | 2019-01-07 05:29 | NUR ---
SUMMARY NO ACUTE CHANGES NOTED FROM ASSESSMENT. CIWA REMAINS RANGING BETWEEN 8-11. 1 MG IV ATIVAN GIVEN PRN PER EMAR. PT WILL REST COMFORTABLY IN BETWEEN DOSES. HE WENT OUTSIDE TO SMOKE X1. VSS, SKIN IS PALE AND CLAMMY. EDUCATION PROVIDED, PT IS RECEPTIVE AND EXPRESSED DESIRE TO CONTINUE TO "GET CLEAN" HE STATED THAT HE HAD MADE A PROMISE TO HIS FAMILY. PT IS TOLERATING PO INTAKE, DENIES NAUSEA. PT IS AWARE OF STRESS TEST THIS AM. CALL LIGHT IN REACH. TM
--- NOTE | 2019-01-07 07:41 | NUR ---
PT AWAKE REQUESTED TO GO OUT TO SMOKE, REMINDED THE PT THAT HE HAD A STRESS TEST SCHEDULED FOR THIS AM
[2019-01-07 09:00] LABS: Creatinine, Blood 0.98 mg/dL (0.60-1.20); Vancomycin, Trough 11.9 ug/mL (5.0-10.0)
--- NOTE | 2019-01-07 17:40 | NUR ---
THE PT IS A/OX3, UP IND , THE PT IS COOPERATIVE, THE PT TODAY WAS UP MULTIPLE TIMES TO GO OUT AND SMOKE. THE PT C/O PAIN ALL OVER AND HEADACHE PAIN T/O THE DAY, THE PT WAS MEDICATED WITH TYLENOL FOR PAIN, THE PT WAS GIVEN ATIVAM 1MG T/O THE DAY FOR CIWA SCORE OF 8, THE PT HAD SOME [place] EMISIS X1 TODAY AND WAS MEDICATED WITH ZOFRAN, THE PTS STRESS TEST WAS STARTED TODAY AND SO FAR THE PT HAS TOLERATED, THE PT APPEARS TO BE BREATHING EASILY ON RA, CALL LIGHT IN REACH
--- NOTE | 2019-01-08 04:39 | NUR ---
SHIFT SUMMARY PT TO HAVE SECOND PORTION OF STRESS TEST TODAY. WHEN I WENT INTO PT ROOM CLOSE TO 2100 TO PERFORM ASSESSMENT PT HAD AN EMPTY LARGE CHOCOLATE BAR CANDY WRAPPER, AND A EMPTY CAN OF MOUNTAIN DEW ON HIS BEDSIDE TABLE. PT ALSO HAD DRANK HALF OF A 480 ML CUP OF PEPSI. PT WAS AWARE THAT HE WAS SUPPOSE TO HAVE SECOND PORTION OF STRESS TEST TODAY AND THAT HE WAS NOT TO HAVE CAFFEINE. HE STATES THAT HE WAS TOLD NO CAFFEINE AFTER 1999. WHEN I SPOKE WITH TRANSPORTER RADIOLOGY, AND CLINICAL COORDINATOR REGARDING THIS, THEY STATED NO CAFFEINE WITHIN 24 HOURS OF PROCEDURE. WILL NOTIFY DAYSHIFT RN OF PT CAFFEINE CONSUMPTION. PT WAS RECEIVING ATIVAN Q 2HR AND WAS REQUESTING TO THE HOUR IT WAS DUE. WHEN PERFORMING CIWA THE BULK OF CIWA SCORE WAS FROM REPORTS OF SEVERE HEADACHE. HOWEVER PT HAD NOT REQUESTED ANY MEDICATION FOR PAIN RELATED TO HIS HEADACHE. AFTER RECEIVING DOSE OF ATIVAN PT GOT DRESSED LOOKED OVER MY SHOULDER AT THE COMPUTER TO SEE WHEN THE NEXT DOSE WAS DUE, AND THEN WENT OUTSIDE TO SMOKE. PT WENT OUT SEVERAL TIMES TO SMOKE DURING EARLIER PART OF SHIFT, AND HAS HAD VISITORS. SINCE PT IS TO DC TODAY, IV ATIVAN WAS DC'D PER YANDEL CASTILLO NP, AND SMALL DOSE OF LIBRIUM WAS ORDERED. WHEN NOTIFIED THAT ATIVAN WAS DC'D, AND LIBRIUM WAS ADDED INSTEAD HE STATES "YOU KNOW I'M A HEROIN ADDICT". THERE HAVE BEEN NO OTHER CHANGES TO REPORT THIS SHIFT. PT RESTING AT THIS TIME. IV ABX PER ORDERS. WILL CONTINUE TO MONITOR AND REPORT TO ONCOMING RN.
--- NOTE | 2019-01-08 07:52 | NUR ---
DR GAMA HERE TO SEE PT.
[2019-01-08] MEDS ORDERED: LISI5 PO (14:48)
[2019-01-08] MEDS ORDERED: METO25ER PO (14:49)
[2019-01-08] MEDS ORDERED: AMOCLA875 PO (14:50)
--- NOTE | 2019-01-08 15:07 | NUR ---
TRANSPORTATION HOME SCHEDULED WITH [facility]. RX FAXED TO [facility].
--- NOTE | 2019-01-08 15:23 | NUR ---
DISCHARGE: PT EATING AND DRINKING. PT DENIES ANY CP/SOB. PT VOIDING, REPORTS RECENT BM. PT IND. WITH STEADY GAIT. PT HAD STUDIES EARLIER TODAY. PT REPORTS WILL FOLLOW UP WITH PCP. IV OUT EARLIER, REPORTS NO OTHER IV'S IN PLACE. TRANSPORT HERE TO GET PT AND REPORTS WILL TAKE PT TO [facility] SO THAT HE MAY LASER SET UP OPERATOR HIS MEDICATIONS.
== END 2019-01-08 15:23 | disposition home or self-care (01) | DRG 871 ==
LOC: ER 08:27 → ERHOLD 10:26 → PCU 13:34 → MEDS 01-02 10:17 → ENPENDDIS 01-08 13:54 → MEDS 01-08 15:23
PROVIDERS: Emergency Medicine; Internal Medicine; Internal Medicine Interventional Cardiology; Pharmacist; ADMIT Internal Medicine
DX: A41.01 Sepsis due to Methicillin susceptible Staphylococcus aureus (principal); I50.21 Acute systolic (congestive) heart failure; N17.9 Acute kidney failure, unspecified; E87.1 Hypo-osmolality and hyponatremia; I42.9 Cardiomyopathy, unspecified; F10.239 Alcohol dependence with withdrawal, unspecified; E87.2 Acidosis; R65.20 Severe sepsis without septic shock; D64.9 Anemia, unspecified; F19.10 Other psychoactive substance abuse, uncomplicated; F17.200 Nicotine dependence, unspecified, uncomplicated; Z88.6 Allergy status to analgesic agent; Z88.8 Allergy status to other drugs, medicaments and biological substances
CPT/HCPCS: 36415; 71045; 78452; 80048; 80053; 80202; 81001; 82550; 82553; 82565; 83605; 83735; 83880; 85025; 85027; 85610; 85651; 85730; 87040; 87077; 87147; 87186; 93005; 93010; 93017; 93306; 93312; 93325; 94762; 96361; 96365; 96366; 96375; 99285-25; A9270; A9500; J1650; J2060; J2250; J2405; J2543; J2704; J2785; J3370; J7030; J7050; J7120; Q0163

== ENCOUNTER 2019-01-19 15:31 | Emergency (ER) | payer OTHER ==
[~2019-01-19] VITALS: Ht 167.6 cm; Wt 59.0 kg
[~2019-01-19 15:31] MED LIST changes: +AMOCLA875 PO; +LISI5 PO; +METO25ER PO
[2019-01-19 16:03] LABS: BASOPHILS ABSOLUTE AUTO 0.04 K/mm3 (0.00-0.23); BASOPHILS PERCENT AUTO 0 % (0-2); EOSINOPHILS ABSOLUTE AUTO 0.12 K/mm3 (0.00-0.68); EOSINOPHILS PERCENT AUTO 1 % (0-6); Hematocrit 32.7 % (37.0-53.0); Hemoglobin 10.6 g/dL (13.5-17.5); IMMATURE GRAN ABSOLUTE AUTO 0.03 K/mm3 (0.00-0.10); IMMATURE GRAN PERCENT AUTO 0 % (0-1); LYMPHOCYTES PERCENT AUTO 13 % (21-46); MONOCYTES ABSOLUTE AUTO 0.71 K/mm3 (0.16-1.47); MONOCYTES PERCENT AUTO 7 % (4-13); Mean Corpuscular HGB 28.4 pg (26.0-34.0); Mean Corpuscular HGB Conc 32.4 g/dL (31.5-36.5); Mean Corpuscular Volume 88 fL (80-100); NEUTROPHILS ABSOLUTE AUTO 7.55 K/mm3 (1.96-9.15); NEUTROPHILS PERCENT AUTO 78 % (41-73); Platelet Count 366 K/mm3 (150-400); RDW Coefficient Variation 12.3 % (11.7-14.2); RDW Standard Deviation 39.5 fL (35.1-46.3); Red Blood Cell Count 3.73 M/mm3 (4.30-5.90); White Blood Cell Count 9.75 K/mm3 (4.00-11.30)
[2019-01-19 16:31] LABS: Alanine Aminotransfer (ALT/SGP 94 U/L (12-78); Albumin, Blood 3.6 g/dL (3.4-5.0); Albumin/Globulin Ratio 0.7 (0.8-1.8); Alk Phos 179 U/L (50-136); Anion Gap 6 mmol/L (6-16); Aspartate Aminotrans (AST/SGOT 68 U/L (12-37); Bilirubin, Total 0.4 mg/dL (0.1-1.0); Blood Urea Nitrogen 24 mg/dL (8-24); Bun/Creatinine Ratio 23.5 (12.0-20.0); CO2, Blood 24 mmol/L (21-32); Calcium, Blood 9.4 mg/dL (8.5-10.1); Chloride, Blood 102 mmol/L (98-108); Creatinine, Blood 1.02 mg/dL (0.60-1.20); Globulin, Blood 4.9 g/dL (2.2-4.0); Glomerular Filtration Rate >60 (60-); Glucose, Blood 121 mg/dL (70-99); Potassium, Blood 4.7 mmol/L (3.5-5.5); Sodium, Blood 132 mmol/L (136-145); Total Protein, Blood 8.5 g/dL (6.4-8.2); Troponin I <0.015 ng/mL (0.000-0.040)
[2019-01-19] MEDS ORDERED: Voltaren100 GM TOP (19:27)
== END 2019-01-19 19:40 | disposition home or self-care (01) ==
LOC: ER 15:31
PROVIDERS: Physician Assistant
DX: R07.89 Other chest pain (principal); F19.10 Other psychoactive substance abuse, uncomplicated; F17.210 Nicotine dependence, cigarettes, uncomplicated; I50.9 Heart failure, unspecified
CPT/HCPCS: 71046; 80053; 83690; 84484; 85025; 93005; 93010; 96374; 99284-25; J1885

== ENCOUNTER 2019-02-04 20:14 | Inpatient (IN) | payer OTHER ==
[~2019-02-04] VITALS: Ht 167.6 cm; Wt 61.6 kg
[~2019-02-04 20:14] MED LIST changes: +Voltaren100 GM TOP
[2019-02-04 20:47] LABS: BASOPHILS ABSOLUTE AUTO 0.05 K/mm3 (0.00-0.23); BASOPHILS PERCENT AUTO 0 % (0-2); EOSINOPHILS ABSOLUTE AUTO 0.26 K/mm3 (0.00-0.68); EOSINOPHILS PERCENT AUTO 2 % (0-6); Hematocrit 37.9 % (37.0-53.0); Hemoglobin 11.7 g/dL (13.5-17.5); IMMATURE GRAN ABSOLUTE AUTO 0.09 K/mm3 (0.00-0.10); IMMATURE GRAN PERCENT AUTO 1 % (0-1); LYMPHOCYTES ABSOLUTE AUTO 2.75 K/mm3 (0.84-5.20); LYMPHOCYTES PERCENT AUTO 21 % (21-46); MONOCYTES ABSOLUTE AUTO 0.68 K/mm3 (0.16-1.47); MONOCYTES PERCENT AUTO 5 % (4-13); Mean Corpuscular HGB 27.4 pg (26.0-34.0); Mean Corpuscular HGB Conc 30.9 g/dL (31.5-36.5); Mean Corpuscular Volume 89 fL (80-100); Mean Platelet Volume 8.1 fL (9.1-12.4); NEUTROPHILS ABSOLUTE AUTO 9.38 K/mm3 (1.96-9.15); NEUTROPHILS PERCENT AUTO 71 % (41-73); Platelet Count 385 K/mm3 (150-400); RDW Standard Deviation 38.5 fL (35.1-46.3); Red Blood Cell Count 4.27 M/mm3 (4.30-5.90); White Blood Cell Count 13.21 K/mm3 (4.00-11.30)
[2019-02-04 20:58] LABS: Source, Urine Clean Catch
[2019-02-04 20:59] LABS: Bilirubin, Urine Neg (Neg); Blood, Urine Neg (Neg); Glucose Qualitative, Urine 1+ (Neg); Ketones, Urine Neg (Neg); Leukocyte Esterase, Urine 1+ (Neg); Nitrite, Urine Neg (Neg); Protein, Urine 1+ (Neg); Urobilinogen, Urine NORM (Normal)
[2019-02-04 21:00] LABS: Appearance, Urine Clear (Clear); Color, Urine Yellow (P-Yellow)
[2019-02-04 21:05] LABS: Bacteria Mod /hpf; Mucus Light (0-Heavy); Red Blood Cells, Urine 0-2 /hpf (0-2); Squamous Epithelial Cells Not Seen /hpf (Few)
[2019-02-04 21:11] LABS: Alanine Aminotransfer (ALT/SGP 97 U/L (12-78); Albumin, Blood 3.5 g/dL (3.4-5.0); Albumin/Globulin Ratio 0.6 (0.8-1.8); Alk Phos 247 U/L (50-136); Anion Gap 9 mmol/L (6-16); Aspartate Aminotrans (AST/SGOT 60 U/L (12-37); Bilirubin, Total 0.2 mg/dL (0.1-1.0); Blood Urea Nitrogen 20 mg/dL (8-24); Bun/Creatinine Ratio 16.5 (12.0-20.0); CO2, Blood 28 mmol/L (21-32); Calcium, Blood 9.2 mg/dL (8.5-10.1); Chloride, Blood 100 mmol/L (98-108); Creatinine, Blood 1.21 mg/dL (0.60-1.20); Globulin, Blood 5.6 g/dL (2.2-4.0); Glomerular Filtration Rate >60 (60-); Glucose, Blood 82 mg/dL (70-99); Potassium, Blood 3.9 mmol/L (3.5-5.5); Sodium, Blood 137 mmol/L (136-145); Total Protein, Blood 9.1 g/dL (6.4-8.2); Troponin I <0.015 ng/mL (0.000-0.040)
--- NOTE | 2019-02-05 04:21 | NUR ---
SHIFT SUMMARY PT ER ADMIT THIS SHIFT FOR SEPSIS, PT CHIEF COMPLAINT IS SEVERE BACK PAIN. PT TO HAVE MRI AND X-RAY OF THE SPINE TODAY. IVF INFUSING ORDERED. PT MEDICATED FOR PAIN IN THE ER, AND HAS PRN'S AVALIBLE FOR PAIN. PT INDEPENDENT AND AMBULATORY IN THE ROOM. RESP E/U ON RA. VITALS STABLE. TELE IN PLACE NSR/BBB IN THE 70'S. ADMISSION COMPLETE. PT REPORTS ACTIVE DRUG USE AND STATES LAST USED HEROIN 02/04/19 AT 0400. NO S/S OF WITHDRAWL AT THIS TIME. PT EASILY AROUSABLE TO VERBAL STIMULI. BED IN LOWEST POSITION, CALL LIGHT WITHIN REACH. WILL CONTINUE TO MONITOR AND REPORT TO ONCOMING RN.
[2019-02-05 04:27] LABS: BASOPHILS ABSOLUTE AUTO 0.04 K/mm3 (0.00-0.23); BASOPHILS PERCENT AUTO 0 % (0-2); EOSINOPHILS ABSOLUTE AUTO 0.24 K/mm3 (0.00-0.68); EOSINOPHILS PERCENT AUTO 2 % (0-6); Hematocrit 33.9 % (37.0-53.0); Hemoglobin 10.9 g/dL (13.5-17.5); IMMATURE GRAN ABSOLUTE AUTO 0.07 K/mm3 (0.00-0.10); IMMATURE GRAN PERCENT AUTO 1 % (0-1); LYMPHOCYTES ABSOLUTE AUTO 2.74 K/mm3 (0.84-5.20); LYMPHOCYTES PERCENT AUTO 25 % (21-46); MONOCYTES ABSOLUTE AUTO 0.65 K/mm3 (0.16-1.47); MONOCYTES PERCENT AUTO 6 % (4-13); Mean Corpuscular HGB 27.4 pg (26.0-34.0); Mean Corpuscular HGB Conc 32.2 g/dL (31.5-36.5); Mean Platelet Volume 8.2 fL (9.1-12.4); NEUTROPHILS ABSOLUTE AUTO 7.15 K/mm3 (1.96-9.15); NEUTROPHILS PERCENT AUTO 66 % (41-73); Platelet Count 319 K/mm3 (150-400); RDW Coefficient Variation 11.9 % (11.7-14.2); RDW Standard Deviation 37.2 fL (35.1-46.3); Red Blood Cell Count 3.98 M/mm3 (4.30-5.90); White Blood Cell Count 10.89 K/mm3 (4.00-11.30)
[2019-02-05 04:32] LABS: Mean Corpuscular Volume 85 fL (80-100)
[2019-02-05 04:46] LABS: Alanine Aminotransfer (ALT/SGP 84 U/L (12-78); Albumin, Blood 2.9 g/dL (3.4-5.0); Albumin/Globulin Ratio 0.6 (0.8-1.8); Alk Phos 217 U/L (50-136); Anion Gap 7 mmol/L (6-16); Aspartate Aminotrans (AST/SGOT 51 U/L (12-37); Bilirubin, Total 0.2 mg/dL (0.1-1.0); Blood Urea Nitrogen 18 mg/dL (8-24); Bun/Creatinine Ratio 15.9 (12.0-20.0); CO2, Blood 27 mmol/L (21-32); Calcium, Blood 9.1 mg/dL (8.5-10.1); Chloride, Blood 104 mmol/L (98-108); Creatinine, Blood 1.13 mg/dL (0.60-1.20); Glomerular Filtration Rate >60 (60-); Glucose, Blood 101 mg/dL (70-99); Potassium, Blood 4.5 mmol/L (3.5-5.5); Sodium, Blood 138 mmol/L (136-145); Total Protein, Blood 7.9 g/dL (6.4-8.2)
--- NOTE | 2019-02-05 16:20 | NUR ---
SHIFT SUMMARY- PT WAS EXPERIENCING A LOT OF PAIN THIS MORNING. GAVE ORAL OXYCODONE WITH NO CHANGE IN PAIN. GAVE IV FENTANYL WITH NO CHANGE. SPOKE WITH DR ABOUT PT'S PAIN, DR CHANGED MEDICATIONS. GAVE IV DILAUDID WHICH BROUGHT PT DOWN TO A 5 AND PT EXPRESSED PAIN RELIEF. PT WENT TO RADIOLOGY FOR MRI AND XRAY OF THE SPINE. MRI SHOWED OSTEOMYELITIS OF T10-T11.
[2019-02-06 05:12] LABS: BASOPHILS ABSOLUTE AUTO 0.05 K/mm3 (0.00-0.23); BASOPHILS PERCENT AUTO 1 % (0-2); EOSINOPHILS ABSOLUTE AUTO 0.28 K/mm3 (0.00-0.68); EOSINOPHILS PERCENT AUTO 3 % (0-6); Hematocrit 33.9 % (37.0-53.0); Hemoglobin 10.6 g/dL (13.5-17.5); IMMATURE GRAN ABSOLUTE AUTO 0.09 K/mm3 (0.00-0.10); IMMATURE GRAN PERCENT AUTO 1 % (0-1); LYMPHOCYTES ABSOLUTE AUTO 2.24 K/mm3 (0.84-5.20); LYMPHOCYTES PERCENT AUTO 23 % (21-46); MONOCYTES PERCENT AUTO 7 % (4-13); Mean Corpuscular HGB 27.6 pg (26.0-34.0); Mean Corpuscular HGB Conc 31.3 g/dL (31.5-36.5); Mean Platelet Volume 8.6 fL (9.1-12.4); NEUTROPHILS ABSOLUTE AUTO 6.55 K/mm3 (1.96-9.15); NEUTROPHILS PERCENT AUTO 66 % (41-73); Platelet Count 333 K/mm3 (150-400); RDW Coefficient Variation 12.2 % (11.7-14.2); RDW Standard Deviation 38.5 fL (35.1-46.3); Red Blood Cell Count 3.84 M/mm3 (4.30-5.90); White Blood Cell Count 9.91 K/mm3 (4.00-11.30)
[2019-02-06 05:13] LABS: Mean Corpuscular Volume 88 fL (80-100)
[2019-02-06 05:38] LABS: Alanine Aminotransfer (ALT/SGP 74 U/L (12-78); Albumin, Blood 2.7 g/dL (3.4-5.0); Albumin/Globulin Ratio 0.6 (0.8-1.8); Alk Phos 201 U/L (50-136); Anion Gap 6 mmol/L (6-16); Aspartate Aminotrans (AST/SGOT 54 U/L (12-37); Bilirubin, Total 0.3 mg/dL (0.1-1.0); Blood Urea Nitrogen 18 mg/dL (8-24); Bun/Creatinine Ratio 16.2 (12.0-20.0); CO2, Blood 25 mmol/L (21-32); Calcium, Blood 8.7 mg/dL (8.5-10.1); Chloride, Blood 104 mmol/L (98-108); Creatinine, Blood 1.11 mg/dL (0.60-1.20); Globulin, Blood 4.7 g/dL (2.2-4.0); Glomerular Filtration Rate >60 (60-); Glucose, Blood 98 mg/dL (70-99); Potassium, Blood 4.4 mmol/L (3.5-5.5); Sodium, Blood 135 mmol/L (136-145); Total Protein, Blood 7.4 g/dL (6.4-8.2)
--- NOTE | 2019-02-06 06:24 | NUR ---
SHIFT SUMMARY PT HAS INTERMITTENT BACK PAIN THIS SHIFT. PT PAIN INCREASES WITH MOVEMENT. HE DESCRIBES PAIN TIGHTENING IN BACK, AND STATES HE HAS SPASMS. PAIN WELL CONTROLLED WITH DILAUDID ABOUT Q3-4. PT FINISHED LAST BAG OF NS THIS SHIFT. IV ABX INFUSED ORDERED. POSITIVE BLOOD CX X2 SETS. PT BEING COVERED WITH IV VANCO, AND ROCEPHIN. WILL NOTIFY DAY RN FOR FOLLOW UP WITH ATTENDING REGARDING THESE RESULTS. ASSESSMENT HAS REMAINED UNCHANGED. WILL CONTINUE TO MONITOR AND REPORT TO ONCOMING RN.
--- NOTE | 2019-02-06 11:10 | NUR ---
Echocardiogram completed.
--- NOTE | 2019-02-06 14:32 | NUR ---
SHIFT SUMMARY PATIENT HAS BEEN PLEASANT AND COOPERATIVE WITH STAFF. HAS CHRONIC PAIN TO BACK/SPINE SINCE ADMIT. RESPONDS MODERATELY WELL TO REQUESTED PAIN MEDICATION. CONTINUES ON IV ABX WITHOUT S/SX OF ADVERSE REACTIONS NOTED. NO ACUTE CHANGES NOTED DURING THIS SHIFT. WILL CONTINUE TO MONITOR AND PROVIDE CARE NEEDED.
--- NOTE | 2019-02-06 21:21 | NUR ---
PT HUNGRY, HALF OF A SANDWICH WITH PAEZ GIVEN. NO OTHER NEEDS. PT REPORTS THE PAIN IS EASING UP A LITTLE. CALL LT IN REACH.
--- NOTE | 2019-02-06 22:13 | NUR ---
PT RESTING QUIETLY. CALL LT IN REACH.
--- NOTE | 2019-02-07 04:23 | NUR ---
SHIFT SUMMARY: MEDICATED FOR BACK AND ABDOMINAL PAIN WITH 1MG DILAUDID IV EVERY 2-3 HRS. PT THEN WOULD DRIFT OFF TO SLEEP. IVF RUNNING AT TKO TO PROTECT IV SITE. NO COMPLAINTS OF NAUSEA. TOLERATED SNACKS DURING SHIFT. ON RA. VSS. USES URINAL WHILE IN BED AND CALL LT APPROPRIATELY. SR AT 75 WITH BBB ON TELE. ABX CONTINUED. NO ACUTE CHANGES. WILL CONTINUE TO MONITOR AND PROVIDE CARE UNTIL SHIFT REPORT.
[2019-02-07 05:11] LABS: BASOPHILS ABSOLUTE AUTO 0.05 K/mm3 (0.00-0.23); BASOPHILS PERCENT AUTO 1 % (0-2); EOSINOPHILS ABSOLUTE AUTO 0.27 K/mm3 (0.00-0.68); EOSINOPHILS PERCENT AUTO 3 % (0-6); Hemoglobin 10.8 g/dL (13.5-17.5); IMMATURE GRAN ABSOLUTE AUTO 0.12 K/mm3 (0.00-0.10); IMMATURE GRAN PERCENT AUTO 1 % (0-1); LYMPHOCYTES ABSOLUTE AUTO 2.52 K/mm3 (0.84-5.20); LYMPHOCYTES PERCENT AUTO 29 % (21-46); MONOCYTES PERCENT AUTO 7 % (4-13); Mean Corpuscular HGB 26.6 pg (26.0-34.0); Mean Corpuscular HGB Conc 30.9 g/dL (31.5-36.5); Mean Corpuscular Volume 86 fL (80-100); Mean Platelet Volume 8.4 fL (9.1-12.4); NEUTROPHILS ABSOLUTE AUTO 5.12 K/mm3 (1.96-9.15); NEUTROPHILS PERCENT AUTO 59 % (41-73); Platelet Count 384 K/mm3 (150-400); RDW Coefficient Variation 12.2 % (11.7-14.2); RDW Standard Deviation 38.3 fL (35.1-46.3); Red Blood Cell Count 4.06 M/mm3 (4.30-5.90); White Blood Cell Count 8.68 K/mm3 (4.00-11.30)
--- NOTE | 2019-02-07 06:19 | NUR ---
PT RESTING QUIETLY. NO DISTRESS NOTED.
[2019-02-07] MEDS ORDERED: ACET325UDC PO (15:21)
[2019-02-07] MEDS ORDERED: BISA5EC PO (15:22)
[2019-02-07] MEDS ORDERED: BISA5EC (15:22)
[2019-02-07] MEDS ORDERED: Docusil100 MG PO (15:25)
[2019-02-07] MEDS ORDERED: HYDMOR2 PO (15:27)
[2019-02-07] MEDS ORDERED: CEFAZOLIN2 GM/100 M IV (15:29)
[2019-02-07] MEDS ORDERED: KETO10 PO (15:30)
[2019-02-07] MEDS ORDERED: LISI5 PO (15:30)
[2019-02-07] MEDS ORDERED: NICO21TP TOP (15:31)
[2019-02-07] MEDS ORDERED: ONDA4ODT MM (15:32)
[2019-02-07] MEDS ORDERED: MIRALAX17 GM PO (15:32)
[2019-02-07] MEDS ORDERED: Florastor250 MG PO (15:33)
[2019-02-07] MEDS ORDERED: RIFA300 PO (15:33)
[2019-02-07] MEDS ORDERED: SENN187 PO (15:34)
--- NOTE | 2019-02-07 17:55 | NUR ---
SHIFT SUMMARY PT INDEPENDENT IN ROOM. USING URINAL FREQUENTLY. REPORTS PAIN AND ASKING FOR MEDS EVERY 2-3 HOURS. HAVE ATTEMPTED TO OFFER ORAL MEDS BUT REPORTS HE WOULD RATHER STICK WITH THE IV PAIN MEDS. DECIDED TO GO OUT TO SMOKE THIS EVENING. RETURNED AND DIDN'T APPEAR IN ANY RESP DISTRESS. POWERGLIDE STARTED THIS AFTERNOON. PLANS FOR TRANSFER TO REHAB FACILITY FOR CONTINUING IV ANTIBIOTICS.
[2019-02-08 05:11] LABS: BASOPHILS ABSOLUTE AUTO 0.04 K/mm3 (0.00-0.23); BASOPHILS PERCENT AUTO 1 % (0-2); EOSINOPHILS ABSOLUTE AUTO 0.28 K/mm3 (0.00-0.68); EOSINOPHILS PERCENT AUTO 4 % (0-6); Hematocrit 35.9 % (37.0-53.0); Hemoglobin 11.2 g/dL (13.5-17.5); IMMATURE GRAN ABSOLUTE AUTO 0.13 K/mm3 (0.00-0.10); IMMATURE GRAN PERCENT AUTO 2 % (0-1); LYMPHOCYTES ABSOLUTE AUTO 2.54 K/mm3 (0.84-5.20); LYMPHOCYTES PERCENT AUTO 35 % (21-46); MONOCYTES ABSOLUTE AUTO 0.66 K/mm3 (0.16-1.47); MONOCYTES PERCENT AUTO 9 % (4-13); Mean Corpuscular HGB 27.5 pg (26.0-34.0); Mean Corpuscular HGB Conc 31.2 g/dL (31.5-36.5); Mean Corpuscular Volume 88 fL (80-100); Mean Platelet Volume 8.2 fL (9.1-12.4); NEUTROPHILS ABSOLUTE AUTO 3.68 K/mm3 (1.96-9.15); NEUTROPHILS PERCENT AUTO 50 % (41-73); Platelet Count 429 K/mm3 (150-400); RDW Coefficient Variation 12.3 % (11.7-14.2); RDW Standard Deviation 39.3 fL (35.1-46.3); Red Blood Cell Count 4.07 M/mm3 (4.30-5.90); White Blood Cell Count 7.33 K/mm3 (4.00-11.30)
--- NOTE | 2019-02-08 07:36 | NUR ---
Rn summary: Patient is alert and oriented. Patient states he had gone out to smoke on day shift and that it caused him to be more painful. Pt was medicated with oxy 10mg with some relief. Pt has been receiving dilaudid 1mg IV every 2.5-3 hours for back pain. Pt states pain wraps around to his middle. Tele shows SR with BBB rate 70's. Pt does doze between pain meds. Plan for pt to be DC'd to Rehab today. Call light in reach.
[2019-02-08] MEDS ORDERED: BISA5EC PO (09:20)
--- NOTE | 2019-02-08 18:09 | NUR ---
SHIFT SUMMARY PT REPORTING PAIN TO BACK AND ABDOMEN FREQUENTLY TODAY. REPORTS HE DOESN'T THINK ORAL PAIN MEDS TAKEN HASN'T HELPED. ALSO REPORTED RUE POWER GLIDE STARTED HURTING HIM SEVERELY. CHANGED DRESSING AND PAIN REPORTED TO IMPROVE. SHOWER TAKEN THIS MORNING AND HEATED KPAD OFFERED AND PROVIDED TO HIM TO EASE MUSCLE SORENESS-REPORTED IT HELPED HIS LEGS BE ABLE TO STRETCH OUT RATHER THAN TENSE UP. POSSIBLE DISCHARGE TOMORROW. OUT TO SMOKE USING FWW AT THIS TIME.
--- NOTE | 2019-02-09 06:07 | NUR ---
PT with ostermylitis and positive blood cultures x 2 continues on cefazolin via rt upper arm powerglide. He is a IV drug user, dx says drug of choice IV is meth. He is on tele with nsr rate 60s with BBB. Acute back pain and abd cramping. Medicated for pain with IV dilaudid 1 mg x 3 and toradol 15 mg iv x 2 with helpful effect. offered oral pain meds pt declined. Bowel care yesterday and this am for no bm recently. Poor appetite, abd soft nondistended. Drinks iced pepsi throughout shift. Flat affect. PT was coming up elevator from outside smoking at shift change, he was counseled not to smoke with nicotine patch in place. verbalized understanding. DC pending snf to facilitate tx of osteomylitis for 6 weeks iv antibiotics then dc to treatment center for iv drug abuse.
--- NOTE | 2019-02-09 16:43 | NUR ---
SHIFT SUMMARY PTS PAIN MEDS CHANGED TO ORAL BY IN PREPERATION FOR TRANSFER TO NURSING FACILITY SOON. PT REPORTING ORAL DILAUDID NOT EFFECTIVE FOR PAIN LIKE IV DILAUDID. HAS BEEN NAUSEATED THIS AFTERNOON WITH A SMALL EMESIS APPROX 1/2 HOURS AFTER A DOSE OF PAIN MEDS. ASKING FOR ANOTHER DOSE DUE TO EMESIS. EXPLAINED THE PILL WAS NOT LOCATED IN THE EMESIS AND IT MUST HAVE DISSOLVED ALREADY. NO FEVER. PT REPORTING KPAD MAKES HIM TOO HOT DESPITE REALLY ENJOYING IT YESTERDAY. AMBULATED TO BATHROOM AND HAD A BM. FOUND USED CHEWING TOBACCO AT BEDSIDE AND EXPLAINED HOSPTIAL POLICY FOR USING NICOTINE PRODUCTS INSIDE THE HOSPITAL. HAS BEEN MORE WITHDRAWN TODAY OVER LAST TWO DAYS.
--- NOTE | 2019-02-10 18:29 | NUR ---
SHIFT SUMMARY DISCHARGED THIS A.M. CAREMANAGERS REPORT THAT PATIENT'S INSURANCE WILL NOT PAY FOR FULL 45 DAYS ANTIBIOTIC THERAPY. TO BE EITHER DISCHARGED TO [facility] OR REMAIN AT [facility] IF NECESSARY. IV DRUG USE AND DX OF OSTEOMYELITIS. FREQUENT REQUESTS FOR PAIN MEDICATIONS. GOES OUT TO SMOKE FREQUENTLY. GOOD APPETITE.
--- NOTE | 2019-02-11 05:40 | NUR ---
PT with osteomylitis in vert disk continues on IV antibiotics for tx. HAd positive BC x 2. Acute pain continues with complaints frequently of 8 to 10/10 low back pain. Oxycodone 10 mg po or dilaudid 2 mg po and liquid tylenol 650 mg given prn with helpful effect. PT verbalized osteomylitis resulted from IV brug abuse. Discharge planning continues due to need of IV antibiotics for 6 weeks. Constipation relieved.
[2019-02-11 14:26] LABS: BASOPHILS ABSOLUTE AUTO 0.04 K/mm3 (0.00-0.23); BASOPHILS PERCENT AUTO 0 % (0-2); EOSINOPHILS ABSOLUTE AUTO 0.33 K/mm3 (0.00-0.68); EOSINOPHILS PERCENT AUTO 3 % (0-6); Hematocrit 36.7 % (37.0-53.0); Hemoglobin 11.3 g/dL (13.5-17.5); IMMATURE GRAN ABSOLUTE AUTO 0.03 K/mm3 (0.00-0.10); IMMATURE GRAN PERCENT AUTO 0 % (0-1); LYMPHOCYTES ABSOLUTE AUTO 3.26 K/mm3 (0.84-5.20); LYMPHOCYTES PERCENT AUTO 32 % (21-46); MONOCYTES PERCENT AUTO 5 % (4-13); Mean Corpuscular HGB 27.5 pg (26.0-34.0); Mean Corpuscular HGB Conc 30.8 g/dL (31.5-36.5); Mean Corpuscular Volume 89 fL (80-100); Mean Platelet Volume 8.4 fL (9.1-12.4); NEUTROPHILS ABSOLUTE AUTO 5.96 K/mm3 (1.96-9.15); NEUTROPHILS PERCENT AUTO 59 % (41-73); Platelet Count 515 K/mm3 (150-400); RDW Coefficient Variation 12.5 % (11.7-14.2); RDW Standard Deviation 40.6 fL (35.1-46.3); Red Blood Cell Count 4.11 M/mm3 (4.30-5.90); White Blood Cell Count 10.12 K/mm3 (4.00-11.30)
[2019-02-11 14:38] LABS: Alanine Aminotransfer (ALT/SGP 42 U/L (12-78); Albumin, Blood 3.2 g/dL (3.4-5.0); Albumin/Globulin Ratio 0.6 (0.8-1.8); Alk Phos 236 U/L (50-136); Anion Gap 8 mmol/L (6-16); Aspartate Aminotrans (AST/SGOT 37 U/L (12-37); Bilirubin, Total 0.3 mg/dL (0.1-1.0); Blood Urea Nitrogen 21 mg/dL (8-24); Bun/Creatinine Ratio 19.1 (12.0-20.0); CO2, Blood 26 mmol/L (21-32); Calcium, Blood 8.9 mg/dL (8.5-10.1); Chloride, Blood 105 mmol/L (98-108); Globulin, Blood 5.1 g/dL (2.2-4.0); Glomerular Filtration Rate >60 (60-); Glucose, Blood 109 mg/dL (70-99); Potassium, Blood 4.2 mmol/L (3.5-5.5); Sodium, Blood 139 mmol/L (136-145); Total Protein, Blood 8.3 g/dL (6.4-8.2)
--- NOTE | 2019-02-11 16:02 | NUR ---
1300 TODAY, AUXILIARY PLANT OPERATOR CALLED FOR SUDDEN ONSET SEVERE HEAD PAIN, PHOTOSENSITIVITY, NEURO EXAM CHANGED. L EYEBROW UNABLE TO RAISE, R ARM NUMB AND TINGLING, AND HE STATES HE FEELS 'REALLY BAD'. DR DELAROSA CALLED, AUXILIARY PLANT OPERATOR CALLED, STAT CT OF HEAD ORDERED. CT WNL, DR DELAROSA ORDERED IV NAUSEA, PAIN, AND ANXIETY MEDS. FAMILY AT UPDATED PER DR DELAROSA. CONTINUING TO MONITOR CLOSELY, PT FEELING MUCH BETTER OF 1600. R HAND STILL NUMB, BUT EYEBROWS NOW RAISING EQUALLY, AND HE STATES HE 'FEELS MUCH BETTER'. [facility]
--- NOTE | 2019-02-11 18:29 | NUR ---
SHIFT SUMMARY SEE TECHNICAL INSTRUCTOR COURSE DEVELOPER NOTE. ZABRINA HAD STAT HEAD CT, WAS WNL. R HAND AND FACIAL MUSCLES BACK TO NORMAL, STILL HAS BAD HEADACHE. FAMILY VISITED. OXY AND DILAUDID WORKING WELL FOR PAIN. INDEP TO BR. WENT OUTSIDE SEVERAL TIMES TO SMOKE. TOOK MEDS PRESCRIBED. CALL LIGHT IN REACH, [facility]
--- NOTE | 2019-02-12 03:39 | NUR ---
02/12/19 0305 PT C/O BACK PAIN AND WAS MEDICATED PER JUN. WANTED TO BE DISCONNECTED TO GO "OUTSIDE TO SMOKE". RECONNECTED WHEN HE RETURNED. VITALS BETTER THIS AM.
[2019-02-12 04:22] LABS: BASOPHILS ABSOLUTE AUTO 0.04 K/mm3 (0.00-0.23); BASOPHILS PERCENT AUTO 1 % (0-2); EOSINOPHILS ABSOLUTE AUTO 0.28 K/mm3 (0.00-0.68); EOSINOPHILS PERCENT AUTO 4 % (0-6); Hemoglobin 10.6 g/dL (13.5-17.5); IMMATURE GRAN ABSOLUTE AUTO 0.05 K/mm3 (0.00-0.10); IMMATURE GRAN PERCENT AUTO 1 % (0-1); LYMPHOCYTES ABSOLUTE AUTO 2.66 K/mm3 (0.84-5.20); LYMPHOCYTES PERCENT AUTO 35 % (21-46); MONOCYTES ABSOLUTE AUTO 0.46 K/mm3 (0.16-1.47); MONOCYTES PERCENT AUTO 6 % (4-13); Mean Corpuscular HGB 26.8 pg (26.0-34.0); Mean Corpuscular HGB Conc 30.3 g/dL (31.5-36.5); Mean Corpuscular Volume 88 fL (80-100); Mean Platelet Volume 8.3 fL (9.1-12.4); NEUTROPHILS ABSOLUTE AUTO 4.18 K/mm3 (1.96-9.15); NEUTROPHILS PERCENT AUTO 54 % (41-73); Platelet Count 403 K/mm3 (150-400); RDW Coefficient Variation 12.7 % (11.7-14.2); RDW Standard Deviation 41.4 fL (35.1-46.3); Red Blood Cell Count 3.96 M/mm3 (4.30-5.90); White Blood Cell Count 7.67 K/mm3 (4.00-11.30)
[2019-02-12 05:03] LABS: Anion Gap 7 mmol/L (6-16); Blood Urea Nitrogen 23 mg/dL (8-24); Bun/Creatinine Ratio 19.7 (12.0-20.0); C-REACTIVE PROTEIN, EXT RANGE 0.467 mg/dL (0.000-0.300); CO2, Blood 24 mmol/L (21-32); Calcium, Blood 8.7 mg/dL (8.5-10.1); Chloride, Blood 108 mmol/L (98-108); Creatinine, Blood 1.17 mg/dL (0.60-1.20); Glomerular Filtration Rate >60 (60-); Glucose, Blood 160 mg/dL (70-99); Potassium, Blood 4.2 mmol/L (3.5-5.5); Sodium, Blood 139 mmol/L (136-145)
--- NOTE | 2019-02-12 07:00 | NUR ---
ASSUMED CARE OF PT- REPORT COMPLETED WITH NIGHT RN VENITA. PER REPORT PT SBP DROPPED INTO THE 80'S LAST NIGHT WITH IVF RUNNING, PT BP TENDS TO RUN LOW SO DR NOT INFORMED AT THAT TIME. SBP THIS MORNING IS 98. SPOKE TO DR DELAROSA, BP MEDS HELD THIS MORNING D/T VITAL SIGNS. PER DR DELAROSA IV DILAUDID TO BE DC'D TODAY.
--- NOTE | 2019-02-12 07:31 | NUR ---
02/12/19 0600 PT SLEEPING ON AND OFF THIS SHIFT. VITALS BETTER THIS AM. MEDICATED FOR PAIN.
--- NOTE | 2019-02-12 17:51 | NUR ---
SPOKE TO DR DELAROSA- REQUESTED IV TORADOL FOR PT BONE PAIN. PT HAS AN ALLERGY TO ASPRIN AND IBUPROFEN SO NO ORDER WAS RECIEVED FOR TORADOL. DID RECIEVE AN ORDER FOR BENGAY, PT DECLINED TO TAKE IT STATING STATING IT DOESN'T WORK AND "IT MAKES ME ITCHY." STARTED TYLENOL WITH THE OXY THIS AFTERNOON, WILL ATTEMPT REGULAR INTERVALS IN AN ATTEMPT TO BETTER CONTROL THE PAIN. DR DURAND.
--- NOTE | 2019-02-12 17:59 | NUR ---
SHIFT SUMMARY- PT ALERT AND ORIENTED AND INDEPENDENT IN THE HALLS. PT GOES OUT TO SMOKE INDEPENDENTLY WITH A WALKER. PT WILL REQUEST PAIN MEDICATION THEN GO OUT TO SMOKE BEFORE STAFF ARRIVE WITH IT. PT STATED THE PAIN IN HIS BACK FEELS BETTER WHEN HE IS UP AND MOVING. PG REBA IS PATENT. PER DR DELAROSA IVF DC'D AROUND NOON. VERBAL ORDER RECIEVED FOR DC IVF AND IV DILAUDID WELL.
--- NOTE | 2019-02-13 05:03 | NUR ---
02/13/19 0500 MEDICATED FOR CHRONIC BACK PAIN PER JUN. SELF AMBULATES TO GO SMOKE ONCE THIS SHIFT. VITALS STABLE. MORE COMMUNICATIVE AND POSITIVE TODAY THAN YESTERDAY. TAKING ORAL INTAKE WELL.
--- NOTE | 2019-02-13 07:26 | NUR ---
ASSUMED CARE OF PT- REPORT RECIEVED FROM NIGHT RN VENITA. PER REPORT PT SEEMS TO BE MORE WILLING TO INTERACT WITH STAFF T/O THE NIGHT. HE HAS BEEN UP TWICE TO WALK OUTSIDE FOR A SMOKE PER REPORT FROM NIGHT RN. PT WAS OUT AT CHANGE OF SHIFT, AFTER REPPORT PT WAS MEDICATED BY NIGHT RN WITH TYLENOL.
[2019-02-13] MEDS ORDERED: PROM25 PO (14:45)
[2019-02-13] MEDS ORDERED: PYRI100 PO (14:47)
[2019-02-13] MEDS ORDERED: LIDOCAINE PAIN1 EACH TOP (14:47)
[2019-02-13] MEDS ORDERED: LORA1 PO (14:47)
[2019-02-13] MEDS ORDERED: CEPH500 PO (14:48)
--- NOTE | 2019-02-13 18:23 | NUR ---
DISCHARGE NOTE- PT DISCHARGED TO SNF. RECIEVED A CALL AFTER PT ARRIVED AND GAVE A FULL REPORT OVER THE PHONE. NO FURTHER QUESTIONS AT THAT TIME CONTACT INFO PROVIDED. PT DC'D WITH THE PG IN THE REBA FOR IV ABX INFUSION OUT PT.
== END 2019-02-13 15:45 | DRG 540 ==
LOC: DELPENDDIS → ER 20:14 → MEDS 22:07 → ENPENDDIS 02-08 08:36 → MEDS 02-09 10:37 → ENPENDDIS 02-10 11:56 → MEDS 02-13 15:45
PROVIDERS: Emergency Medicine; Family Medicine; ADMIT Internal Medicine
DX: M46.24 Osteomyelitis of vertebra, thoracic region (principal); I50.20 Unspecified systolic (congestive) heart failure; F19.10 Other psychoactive substance abuse, uncomplicated; F17.210 Nicotine dependence, cigarettes, uncomplicated; F32.9 Major depressive disorder, single episode, unspecified; M54.30 Sciatica, unspecified side; B19.20 Unspecified viral hepatitis C without hepatic coma; Z59.0 Homelessness
CPT/HCPCS: 36415; 70450; 71046; 72080; 72146; 72148; 80048; 80053; 81001; 83605; 83690; 83880; 84484; 85025; 85651; 86140; 87040; 87077; 87086; 87147; 87186; 93005; 93010; 93308; 96374; 96375; 99285-25; J0690; J0696; J1170; J1644; J1650; J1885; J2405; J2550; J3010; J3370; J7030; J7050

== ENCOUNTER → 2019-04-04 | Outpatient (CLI) | payer OTHER ==
[~2019-04-04] MED LIST changes: +ACET325UDC PO; +BISA5EC; +BISA5EC PO; +CEFAZOLIN2 GM/100 M IV; +CEPH500 PO; +Docusil100 MG PO; +Florastor250 MG PO; +HYDMOR2 PO; +KETO10 PO; +LIDOCAINE PAIN1 EACH TOP; +LORA1 PO; +MIRALAX17 GM PO; +NICO21TP TOP; +ONDA4ODT MM; +PROM25 PO; +PYRI100 PO; +RIFA300 PO; +SENN187 PO
== END | disposition home or self-care (01) ==
LOC: LAB SHORT 16:00 → LAB UCHC 16:00 → LAB FUT 04-04 16:10 → EDSTATUS 04-04 16:10
DX: M46.20 Osteomyelitis of vertebra, site unspecified (principal)
CPT/HCPCS: 85651; 86140

== ENCOUNTER 2019-08-28 18:16 | Emergency (ER) | payer OTHER ==
[~2019-08-28] VITALS: Ht 172.7 cm; Wt 59.0 kg
[2019-08-28 19:07] LABS: BASOPHILS ABSOLUTE AUTO 0.04 K/mm3 (0.00-0.23); BASOPHILS PERCENT AUTO 1 % (0-2); EOSINOPHILS ABSOLUTE AUTO 0.39 K/mm3 (0.00-0.68); EOSINOPHILS PERCENT AUTO 5 % (0-6); Hematocrit 36.2 % (37.0-53.0); Hemoglobin 11.8 g/dL (13.5-17.5); IMMATURE GRAN ABSOLUTE AUTO 0.09 K/mm3 (0.00-0.10); IMMATURE GRAN PERCENT AUTO 1 % (0-1); LYMPHOCYTES ABSOLUTE AUTO 2.78 K/mm3 (0.84-5.20); LYMPHOCYTES PERCENT AUTO 34 % (21-46); MONOCYTES ABSOLUTE AUTO 0.58 K/mm3 (0.16-1.47); MONOCYTES PERCENT AUTO 7 % (4-13); Mean Corpuscular HGB 28.9 pg (26.0-34.0); Mean Corpuscular HGB Conc 32.6 g/dL (31.5-36.5); Mean Corpuscular Volume 89 fL (80-100); NEUTROPHILS ABSOLUTE AUTO 4.32 K/mm3 (1.96-9.15); NEUTROPHILS PERCENT AUTO 53 % (41-73); Platelet Count 287 K/mm3 (150-400); RDW Coefficient Variation 12.2 % (11.7-14.2); RDW Standard Deviation 39.9 fL (35.1-46.3); Red Blood Cell Count 4.09 M/mm3 (4.30-5.90)
[2019-08-28 19:48] LABS: Alanine Aminotransfer (ALT/SGP 26 U/L (12-78); Albumin, Blood 3.4 g/dL (3.4-5.0); Albumin/Globulin Ratio 0.9 (0.8-1.8); Alk Phos 132 U/L (50-136); Anion Gap 6 mmol/L (6-16); Aspartate Aminotrans (AST/SGOT 27 U/L (12-37); Bilirubin, Total 0.2 mg/dL (0.1-1.0); Blood Urea Nitrogen 16 mg/dL (8-24); Bun/Creatinine Ratio 13.8 (12.0-20.0); CO2, Blood 25 mmol/L (21-32); Calcium, Blood 8.2 mg/dL (8.5-10.1); Chloride, Blood 107 mmol/L (98-108); Creatinine, Blood 1.16 mg/dL (0.60-1.20); Globulin, Blood 3.9 g/dL (2.2-4.0); Glomerular Filtration Rate >60 (60-); Glucose, Blood 71 mg/dL (70-99); Potassium, Blood 3.9 mmol/L (3.5-5.5); Sodium, Blood 138 mmol/L (136-145); Total Protein, Blood 7.3 g/dL (6.4-8.2); Troponin I <0.015 ng/mL (0.000-0.040)
== END 2019-08-28 20:42 | disposition home or self-care (01) ==
LOC: ER 18:16
PROVIDERS: Emergency Medicine
DX: T40.1X1A Poisoning by heroin, accidental (unintentional), initial encounter (principal); R07.9 Chest pain, unspecified; I50.9 Heart failure, unspecified; F17.210 Nicotine dependence, cigarettes, uncomplicated; Z79.899 Other long term (current) drug therapy
CPT/HCPCS: 36415; 71045; 80053; 84484; 85025; 93005; 93010; 99284-25

== ENCOUNTER 2019-12-08 14:00 | Observation (INO) | payer OTHER ==
[~2019-12-08] VITALS: Ht 175.3 cm; Wt 66.3 kg
[2019-12-08 15:02] LABS: BASOPHILS ABSOLUTE AUTO 0.04 K/mm3 (0.00-0.23); BASOPHILS PERCENT AUTO 0 % (0-2); EOSINOPHILS ABSOLUTE AUTO 0.24 K/mm3 (0.00-0.68); EOSINOPHILS PERCENT AUTO 2 % (0-6); Hemoglobin 12.2 g/dL (13.5-17.5); IMMATURE GRAN ABSOLUTE AUTO 0.03 K/mm3 (0.00-0.10); IMMATURE GRAN PERCENT AUTO 0 % (0-1); LYMPHOCYTES PERCENT AUTO 27 % (21-46); MONOCYTES ABSOLUTE AUTO 0.61 K/mm3 (0.16-1.47); MONOCYTES PERCENT AUTO 6 % (4-13); Mean Corpuscular HGB 27.9 pg (26.0-34.0); Mean Corpuscular HGB Conc 31.3 g/dL (31.5-36.5); Mean Corpuscular Volume 89 fL (80-100); Mean Platelet Volume 8.9 fL (9.1-12.4); NEUTROPHILS PERCENT AUTO 64 % (41-73); Platelet Count 256 K/mm3 (150-400); RDW Coefficient Variation 12.8 % (11.7-14.2); RDW Standard Deviation 42.2 fL (35.1-46.3); Red Blood Cell Count 4.38 M/mm3 (4.30-5.90); White Blood Cell Count 10.32 K/mm3 (4.00-11.30)
[2019-12-08 15:21] LABS: Alanine Aminotransfer (ALT/SGP 22 U/L (12-78); Albumin, Blood 3.7 g/dL (3.4-5.0); Albumin/Globulin Ratio 0.8 (0.8-1.8); Alk Phos 119 U/L (50-136); Anion Gap 5 mmol/L (6-16); Aspartate Aminotrans (AST/SGOT 17 U/L (12-37); Bilirubin, Total 0.3 mg/dL (0.1-1.0); Blood Urea Nitrogen 16 mg/dL (8-24); Bun/Creatinine Ratio 14.2 (12.0-20.0); CO2, Blood 28 mmol/L (21-32); Calcium, Blood 9.1 mg/dL (8.5-10.1); Chloride, Blood 108 mmol/L (98-108); Creatinine, Blood 1.13 mg/dL (0.60-1.20); Globulin, Blood 4.4 g/dL (2.2-4.0); Glomerular Filtration Rate >60 (60-); Glucose, Blood 145 mg/dL (70-99); Potassium, Blood 4.4 mmol/L (3.5-5.5); Sodium, Blood 141 mmol/L (136-145); Total Protein, Blood 8.1 g/dL (6.4-8.2); Troponin I <0.015 ng/mL (0.000-0.040)
[2019-12-08 22:28] LABS: U Amphetamine Screen DETECTED; U Barbituate Screen Not Detected; U Benzodiazapine Screen Not Detected; U Buprenorphine Screen Not Detected; U Cannabinoids Screen Not Detected; U Cocaine Screen Not Detected; U Methadone Screen Not Detected; U Methamphetamine Screen DETECTED; U Opiates Screen DETECTED; U Oxycodone Screen Not Detected; U Phencyclidine Screen Not Detected; U Propoxyphene Screen Not Detected
[2019-12-08 22:53] LABS: CPK Creatine Kinase 31 U/L (39-308)
[2019-12-09 01:12] LABS: Adenovirus Not Detected (NOT DETECT); Bordetella pertussis Not Detected (NOT DETECT); Chlamydophila pneumoniae Not Detected (NOT DETECT); Coronavirus 229E Not Detected (NOT DETECT); Coronavirus HKU1 Not Detected (NOT DETECT); Coronavirus NL63 Not Detected (NOT DETECT); Coronavirus OC43 Not Detected (NOT DETECT); Human Metapneumovirus Not Detected (NOT DETECT); Human Rhinovirus/Enterovirus Not Detected (NOT DETECT); Influenza A/2009-H1 Not Detected (NOT DETECT); Influenza A/H1 Not Detected (NOT DETECT); Influenza A/H3 Not Detected (NOT DETECT); Influenza B Not Detected (NOT DETECT); Mycoplasma pneumoniae Not Detected (NOT DETECT); Parainfluenza Virus 1 Not Detected (NOT DETECT); Parainfluenza Virus 2 Not Detected (NOT DETECT); Parainfluenza Virus 3 Not Detected (NOT DETECT); Parainfluenza Virus 4 Not Detected (NOT DETECT); Respiratory Syncytial Virus Not Detected (NOT DETECT)
[2019-12-09 05:00] LABS: BASOPHILS ABSOLUTE AUTO 0.03 K/mm3 (0.00-0.23); BASOPHILS PERCENT AUTO 0 % (0-2); EOSINOPHILS ABSOLUTE AUTO 0.23 K/mm3 (0.00-0.68); EOSINOPHILS PERCENT AUTO 3 % (0-6); Hematocrit 35.6 % (37.0-53.0); Hemoglobin 11.1 g/dL (13.5-17.5); IMMATURE GRAN ABSOLUTE AUTO 0.03 K/mm3 (0.00-0.10); IMMATURE GRAN PERCENT AUTO 0 % (0-1); LYMPHOCYTES PERCENT AUTO 32 % (21-46); MONOCYTES ABSOLUTE AUTO 0.62 K/mm3 (0.16-1.47); MONOCYTES PERCENT AUTO 8 % (4-13); Mean Corpuscular HGB 27.3 pg (26.0-34.0); Mean Corpuscular HGB Conc 31.2 g/dL (31.5-36.5); Mean Corpuscular Volume 88 fL (80-100); Mean Platelet Volume 8.8 fL (9.1-12.4); NEUTROPHILS ABSOLUTE AUTO 4.42 K/mm3 (1.96-9.15); NEUTROPHILS PERCENT AUTO 57 % (41-73); Platelet Count 225 K/mm3 (150-400); RDW Coefficient Variation 12.8 % (11.7-14.2); Red Blood Cell Count 4.07 M/mm3 (4.30-5.90); White Blood Cell Count 7.83 K/mm3 (4.00-11.30)
--- NOTE | 2019-12-09 05:05 | NUR ---
ANGULAR JS DEVELOPER SUMMARY NEW ADMIT FROM THE ED MELIDA. PT ADMITTED FOR POSSIBLE ENDOCARDITIS. PT HAS HAD THIS IN THE PAST. PT TO POSSIBLY HAVE ECHO LATER TODAY BUT NO ORDERS OF NOW. PT IS A DAILY HEROIN USER BUT DOES SAY HE HAS BEEN TAPERING HIS USAGE DOWN SIGNIFICANTLY. STATES HE DOES HEROIN TO FIGHT CHRONIC BACK PAIN THAT HE HAS A RESULT OF OSTEOMYELITIS IN HIS SPINE IN THE PAST. GAVE PT 1MG IV ATIVAN X2 FOR SOME WITHDRAWAL SYMPTOMS. PT STATES HE HAS NOT USED HEROIN SINCE APPROXIMATELY 1300 YESTERDAY. PT HAVING SOME NAUSEA, HEADACHE, AND STOMACH CRAMPING. PT REPORTS THAT HE IS HOMELESS AND LIVES IN A [place] MOST OF THE TIME BUT IS CURRENTLY STAYING WITH HIS MOTHER IN [place]. SPOKE WITH PT'S DTR WHO CALLED MELIDA AND SHE CONFIRMED PT'S HOMELESS STATUS. SHE WOULD LIKE TO BE NOTIFIED OF RESULTS OF ECHO AND OVERALL PLAN OF CARE, PHONE NUMBER IS IN NURSE NOTIFY ORDER. VITALS ARE STABLE, PT HAS SLEPT MOST OF THE NIGHT. WILL CONTINUE TO MONITOR.
[2019-12-09 05:21] LABS: Alanine Aminotransfer (ALT/SGP 18 U/L (12-78); Albumin/Globulin Ratio 0.7 (0.8-1.8); Alk Phos 102 U/L (50-136); Anion Gap 5 mmol/L (6-16); Aspartate Aminotrans (AST/SGOT 12 U/L (12-37); Bilirubin, Total 0.2 mg/dL (0.1-1.0); Blood Urea Nitrogen 17 mg/dL (8-24); CO2, Blood 24 mmol/L (21-32); Calcium, Blood 8.4 mg/dL (8.5-10.1); Chloride, Blood 108 mmol/L (98-108); Globulin, Blood 4.1 g/dL (2.2-4.0); Glomerular Filtration Rate >60 (60-); Glucose, Blood 144 mg/dL (70-99); Potassium, Blood 4.2 mmol/L (3.5-5.5); Sodium, Blood 137 mmol/L (136-145); Total Protein, Blood 7.1 g/dL (6.4-8.2)
--- NOTE | 2019-12-09 09:22 | NUR ---
DC TELEMETRY RECEIVED VERBAL ORDER TO D/C TELEMETRY FROM DR. PASCAL.
--- NOTE | 2019-12-09 09:51 | NUR ---
PATIENT IS ADAMANT ABOUT GOING OUTSIDE TO SMOKE. THE ONLY THING KEEPING PT FROM THIS WAS TELE WHICH HAS BEEN D/C THIS AM BY DR. PASCAL. PATIENT ENCOURAGED TO REFRAIN FROM SMOKING AND INFORMED HIM RISK OF BEING DISCHARGED IF NOT BACK WITHIN AN HOUR. PATIENT AGREEABLE AND WALKED OUTSIDE FOR CIGARETTE. SECURITY INFORMED. WILL CONTINUE TO MONITOR.
--- NOTE | 2019-12-09 17:47 | NUR ---
Shift Summary A/Ox3, up in room independently. Ambulated in hallway and out to smoke several times this shift. C/O withdrawal symptoms such as nausea, abdominal pain, cravings for heroin, mild tremors, and sweats noted on forehead. Medicated x 2 with Ativan per EMAR, pt states this helped. Tamper resistant tape to IV as needed when out to smoke. Pt appears to have urgency with voids and had an accidental incontinent episode this shift. Denies diarrhea, sob, dizziness. Possible discharge tomorrow per Dr. Valle pending blood cx. Will continue to monitor.
--- NOTE | 2019-12-10 05:13 | NUR ---
SHIFT SUMMARY PT REPORTS WITHDRAWAL SYMPTOMS THIS SHIFT, AND REPORTED THAT HE WANTED TO LEAVE SO THAT HE COULD GET A FIX. PT ALSO REPORTS N/V AND ABD PAIN. MEDICATED WITH ATIVAN PER ORDERS WITH EFFECT. PT ANXIOUS TO DC, AND WAS ASKING WHAT NEEDED TO BE DONE SO THAT HE COULD LEAVE. PT AGREED TO STAY ANOTHER NIGHT, AND WILL WAIT FOR DR. TIANA SHEA, WHICH REPORTLY WILL BE TODAY. PT HAS BEEN AMBULATING INDEPENDENTLY, AND HAS GONE OUTSIDE TO SMOKE A COUPLE TIMES THIS SHIFT. TAMPER TAPE HAS BEEN USED TO COVER IV WITH NO SIGNS OF TAMPERING UPON RETURN FROM SMOKING. NO ACUTE CHANGES TO REPORT THIS SHIFT. BED IN LOWEST POSITION, CALL LIGHT WIHTIN REACH.
[2019-12-10] MEDS ORDERED: TAMS.4ER PO (11:11)
--- NOTE | 2019-12-10 12:50 | NUR ---
Discharge Summary Discharged to home. Reviewed discharge paperwork with patient, copy provided. No questions at this time. IV removed, tamper tape intact, WNL. Med faxed to [facility]. Patient instructed to f/u with PCP posthospital for blood culture results. Transported by [facility] to his mom's house. Escorted by HOSPITAL CARRIER via ambulation. Patient refused wheelchair escort.
== END 2019-12-10 12:55 | disposition home or self-care (01) ==
LOC: ER 14:00 → MEDS 14:01
PROVIDERS: Physician Assistant; ADMIT Internal Medicine
DX: R50.9 Fever, unspecified (principal); M54.30 Sciatica, unspecified side; I50.22 Chronic systolic (congestive) heart failure; F15.10 Other stimulant abuse, uncomplicated; Z88.6 Allergy status to analgesic agent; Z88.8 Allergy status to other drugs, medicaments and biological substances; Z20.828 Contact with and (suspected) exposure to other viral communicable diseases
CPT/HCPCS: 0099U; 36415; 71045; 72157; 80053; 82550; 83605; 83880; 84484; 85025; 87040; 93005; 93010; 96361; 96365; 96372; 96375; 96376; 99285-25; A9579; G0378; J1650; J1885; J2060; J2405; J3010; J3370; J7030

== ENCOUNTER 2019-12-25 15:43 | Observation (INO) | payer OTHER ==
[~2019-12-25] VITALS: Ht 172.7 cm; Wt 67.0 kg
[~2019-12-25 15:43] MED LIST changes: +TAMS.4ER PO
[2019-12-25] MEDS ORDERED: CLON.1 PO (16:15)
[2019-12-25] MEDS ORDERED: METO25ER PO (16:15)
[2019-12-25] MEDS ORDERED: GABA300 PO (16:16)
[2019-12-25] MEDS ORDERED: HYDRA50 PO (16:16)
[2019-12-25] MEDS ORDERED: LISI5 PO (16:16)
[2019-12-25 16:17] LABS: BASOPHILS ABSOLUTE AUTO 0.03 K/mm3 (0.00-0.23); BASOPHILS PERCENT AUTO 0 % (0-2); EOSINOPHILS ABSOLUTE AUTO 0.25 K/mm3 (0.00-0.68); EOSINOPHILS PERCENT AUTO 3 % (0-6); Hematocrit 34.5 % (37.0-53.0); Hemoglobin 10.9 g/dL (13.5-17.5); IMMATURE GRAN ABSOLUTE AUTO 0.02 K/mm3 (0.00-0.10); IMMATURE GRAN PERCENT AUTO 0 % (0-1); LYMPHOCYTES ABSOLUTE AUTO 2.81 K/mm3 (0.84-5.20); LYMPHOCYTES PERCENT AUTO 38 % (21-46); MONOCYTES ABSOLUTE AUTO 0.55 K/mm3 (0.16-1.47); MONOCYTES PERCENT AUTO 7 % (4-13); Mean Corpuscular HGB 27.8 pg (26.0-34.0); Mean Corpuscular HGB Conc 31.6 g/dL (31.5-36.5); Mean Corpuscular Volume 88 fL (80-100); Mean Platelet Volume 9.1 fL (9.1-12.4); NEUTROPHILS ABSOLUTE AUTO 3.84 K/mm3 (1.96-9.15); NEUTROPHILS PERCENT AUTO 51 % (41-73); Platelet Count 287 K/mm3 (150-400); RDW Standard Deviation 41.9 fL (35.1-46.3); Red Blood Cell Count 3.92 M/mm3 (4.30-5.90)
[2019-12-25 16:45] LABS: Alanine Aminotransfer (ALT/SGP 19 U/L (12-78); Albumin, Blood 3.6 g/dL (3.4-5.0); Albumin/Globulin Ratio 0.9 (0.8-1.8); Alk Phos 95 U/L (50-136); Anion Gap 5 mmol/L (6-16); Aspartate Aminotrans (AST/SGOT 20 U/L (12-37); Bilirubin, Total 0.3 mg/dL (0.1-1.0); Blood Urea Nitrogen 19 mg/dL (8-24); Bun/Creatinine Ratio 12.8 (12.0-20.0); CO2, Blood 26 mmol/L (21-32); Calcium, Blood 8.7 mg/dL (8.5-10.1); Chloride, Blood 109 mmol/L (98-108); Creatinine, Blood 1.49 mg/dL (0.60-1.20); Globulin, Blood 4.1 g/dL (2.2-4.0); Glomerular Filtration Rate 52 (60-); Glucose, Blood 74 mg/dL (70-99); Sodium, Blood 140 mmol/L (136-145); Total Protein, Blood 7.7 g/dL (6.4-8.2); Troponin I <0.015 ng/mL (0.000-0.040)
[2019-12-25 20:45] LABS: Magnesium, Blood 2.2 mg/dL (1.6-2.4)
--- NOTE | 2019-12-25 21:00 | NUR ---
ASSUMED CARE NOTE: ASSUMED CARE PT AT 2049, RECEVIED REPORT FROM JANIE DEGROOT RN. PT ARRIVED TO UNIT VIA STRETCHER. PT IS ALERT AND ORIENTEDX3, HOWEVER, HE IS A POOR HISTORIAN. PT IS ON 2.5MCG/MIN OF LEVOPHED. CENTRAL LINE PLACEMENT TO RIGHT IJ CONFIRMED BY ER PHYSICAN. PT IS ON RA WITH SPO2 AT 95% NO RESPRIATORY DISTRESS. PT IN NSR WITH HR IN THE 80'S. PT C/O CP THAT IS CHRONIC ACCORDING TO HIM. PT STATES THE CP IS DUE TO HUNGER. PT STS HE HAS NOT EATEN IN TWO DAYS. PT ALSO STS HE MAY HAVE TAKEN HIS MEDICATIONS TWICE TODAY, WHICH INCLUDE: METROPOLOL, LISINOPRIL, GABAPENTIN, CLONIDINE. PT STS HE LIVES IN THE STREETS IN A TENT, AND IS UNABLE TO CARE FOR HIMSELF. PT ALSO ADMITTED TO USING HEROIN AND METH 2 DAYS AGO. PT STS THAT HE WANTS TO LEAVE IF HE CANNOT GO SMOKE OUTSIDE, PT WAS OFFERED A NICOTINE PATCH WHICH HE REFUSED. PT STS HE WILL LEAVE AMA, PT WAS REMINDED OF RISK, HE AGREED TO STAY IF FOOD WAS PROVIDED. WILL CONTINUE TO MONITOR PT T/O SHIFT. WILL TITRATE LEVOPHED FOR MAP ABOVE 65.
[2019-12-25 22:43] LABS: U Amphetamine Screen DETECTED; U Barbituate Screen Not Detected; U Benzodiazapine Screen Not Detected; U Buprenorphine Screen Not Detected; U Cannabinoids Screen Not Detected; U Cocaine Screen Not Detected; U Methadone Screen Not Detected; U Methamphetamine Screen DETECTED; U Opiates Screen DETECTED; U Oxycodone Screen Not Detected; U Phencyclidine Screen Not Detected; U Propoxyphene Screen Not Detected
--- NOTE | 2019-12-25 23:48 | NUR ---
UPDATE: PT UPSET, BECAUSE HE CANNOT SMOKE, PT WAS REMINDED OF RISK. PT CONTINUES TO ASK FOR FOOD. PT REPOSITIONS SELF CONSTANTLY IN BED. LEVOPHED OFF SINCE 2323, MAP MAINTAINING ABOVE 65. PT DENIES ANY CP AT THIS TIME.
--- NOTE | 2019-12-26 00:13 | NUR ---
UPDATE: PT IS AGITATED STATING HE IS GOING TO LEAVE. PT IS UPSET HE CANNOT GO OUT TO SMOKE. PT WAS REMINDED THAT RISK OF LEAVING AMA. PT STS " I DO NOT CARE, I DO NOT WANT TO BE HERE ANYMORE. TAKE EVERYTHING OUT" SPOKE TO CHARGE NURSE REGARDING PT'S WISHES.
--- NOTE | 2019-12-26 00:18 | NUR ---
CALLED , REGARDING PT ATTEMPTING TO LEAVE. IS COMING UP TO SEE THE PATEINT. PT IS STARTING TO PULL ON LINES AND CORDS.
--- NOTE | 2019-12-26 00:25 | NUR ---
CAME TO SEE PT. ORDERS GIVEN FOR NICOTINE PATCH AND ATIVAN PRN. PT AGREED TO STAY FOR NOW.
--- NOTE | 2019-12-26 00:39 | NUR ---
UPDATE: LEVOPHED TURNED ON TO 2MCG/MIN, DUE TO LOW BP. PT GIVEN ATIVAN AND NICOTINE PATCH IS IN PLACE TO R SHOULDER. PT STS " I AM GOING THROUGH WITHDRAWALS, I NEED TO GET SOMETHING"
--- NOTE | 2019-12-26 02:12 | NUR ---
UPDATE: PT IS HALLUCINATING, UNABLE TO FOLLOW COMMANDS. PT ATTEMPTING TO GET OUT OF BED. BED ALARM ON, BED AT LOWEST LEVEL.
[2019-12-26 04:31] LABS: BASOPHILS ABSOLUTE AUTO 0.02 K/mm3 (0.00-0.23); BASOPHILS PERCENT AUTO 0 % (0-2); EOSINOPHILS PERCENT AUTO 3 % (0-6); Hematocrit 29.3 % (37.0-53.0); Hemoglobin 9.1 g/dL (13.5-17.5); IMMATURE GRAN ABSOLUTE AUTO 0.02 K/mm3 (0.00-0.10); IMMATURE GRAN PERCENT AUTO 0 % (0-1); LYMPHOCYTES ABSOLUTE AUTO 2.59 K/mm3 (0.84-5.20); LYMPHOCYTES PERCENT AUTO 43 % (21-46); MONOCYTES PERCENT AUTO 8 % (4-13); Mean Corpuscular HGB 27.4 pg (26.0-34.0); Mean Corpuscular HGB Conc 31.1 g/dL (31.5-36.5); Mean Corpuscular Volume 88 fL (80-100); Mean Platelet Volume 9.2 fL (9.1-12.4); NEUTROPHILS ABSOLUTE AUTO 2.69 K/mm3 (1.96-9.15); NEUTROPHILS PERCENT AUTO 45 % (41-73); Platelet Count 201 K/mm3 (150-400); RDW Coefficient Variation 12.9 % (11.7-14.2); RDW Standard Deviation 41.7 fL (35.1-46.3); Red Blood Cell Count 3.32 M/mm3 (4.30-5.90); White Blood Cell Count 6.02 K/mm3 (4.00-11.30)
[2019-12-26 04:53] LABS: Anion Gap 4 mmol/L (6-16); Blood Urea Nitrogen 20 mg/dL (8-24); Bun/Creatinine Ratio 15.5 (12.0-20.0); CO2, Blood 27 mmol/L (21-32); Calcium, Blood 7.9 mg/dL (8.5-10.1); Chloride, Blood 108 mmol/L (98-108); Creatinine, Blood 1.29 mg/dL (0.60-1.20); Glomerular Filtration Rate >60 (60-); Glucose, Blood 75 mg/dL (70-99); Potassium, Blood 4.5 mmol/L (3.5-5.5); Sodium, Blood 139 mmol/L (136-145); Troponin I <0.015 ng/mL (0.000-0.040)
--- NOTE | 2019-12-26 05:49 | NUR ---
SHIFT SUMMARY: SEE PREVIOUS NOTES. PT MORE ALERT AND ORIENTED FROM PREVIOUS ASSESSMENT. PT IS NO LONGER HALLUCINATING. PT IS FOLLOWING COMMANDS AND ABLE TO ANSWER QUESTIONS APPROPRIATLY. PT CONTINUES TO BE ON RA WITH SPO2 ABOVE 95% PT HAS BEEN IN SINUS DUONG- SINUS RYTHYM T/O SHIFT HR BETWEEN 40-70 BPM, PVC'S NOTED, BBB. LEVOPHED HAS BEEN ON SB SINCE 0500, MAP MAINTAINING ABOVE 65. PT HAS REPOSITIONING CONSTANTLY IN BED, ATTEMPTING TO GET COMFORTABLE, BED ALARM WAS PLACED, TO PREVENT PT FROM FALLING. CENTRAL LINE DRESSING WAS CHANGED TWICE THIS SHIFT DUE TO PT MOVING RIGHT ARM ABOVE HEAD, CAUSING DAMAGE TO DRESSING. CENTRAL LINE SITE, OZZING SMALL AMOUNTS OF BLOOD, DRESSING INTACT AT THIS TIME. PT HAS BEEN USING URINAL AT BEDSIDE. WILL CONTINUE TO MONITOR PT UNTIL REPORT IS GIVEN TO ONCOMING SHIFT.
--- NOTE | 2019-12-26 08:25 | NUR ---
Received report from Nichole DE LA GARZA. He awakens to verbal stimuli and is appropriate. He is currently sitting up eating breakfast and ask appropriately for items and is thankful when bringing them in. He is alert and oriented and is able to communicate his needs. There is family in room currently. He has right subclavin CL quad lumen dressing c/d/i and site WNL's and is infusing NS TKO and levophed at 1 mcg/min that was just placed on standby with systolic 111 and HR 50-60's. MAWHIT. He has SCd's bilaterally in place.
--- NOTE | 2019-12-26 10:10 | NUR ---
Patient has been resting well. Daughter at bedside and will be staying all day to assure patient cooperates. Dr Valle by and made med with tele. Dr Noguera came by and did consult, no new orders. Resident by and went in with Dr Noguera and will look at patient, he stating has blood in stool for over a week. He is med tele status. He has been up out of bed abd stable with SBA for lines. Levophed remains off and systolic 120's. Pull right subclavin CL with patient supine and held pressure for 10 minutes and placed CHG small dressing over site.
[2019-12-26 11:00] LABS: BASOPHILS ABSOLUTE AUTO 0.03 K/mm3 (0.00-0.23); BASOPHILS PERCENT AUTO 1 % (0-2); EOSINOPHILS PERCENT AUTO 4 % (0-6); Hematocrit 32.2 % (37.0-53.0); Hemoglobin 10.2 g/dL (13.5-17.5); IMMATURE GRAN ABSOLUTE AUTO 0.01 K/mm3 (0.00-0.10); IMMATURE GRAN PERCENT AUTO 0 % (0-1); LYMPHOCYTES ABSOLUTE AUTO 2.19 K/mm3 (0.84-5.20); LYMPHOCYTES PERCENT AUTO 40 % (21-46); MONOCYTES ABSOLUTE AUTO 0.45 K/mm3 (0.16-1.47); MONOCYTES PERCENT AUTO 8 % (4-13); Mean Corpuscular HGB 27.6 pg (26.0-34.0); Mean Corpuscular HGB Conc 31.7 g/dL (31.5-36.5); Mean Corpuscular Volume 87 fL (80-100); Mean Platelet Volume 9.2 fL (9.1-12.4); NEUTROPHILS ABSOLUTE AUTO 2.61 K/mm3 (1.96-9.15); NEUTROPHILS PERCENT AUTO 48 % (41-73); Platelet Count 204 K/mm3 (150-400); RDW Coefficient Variation 12.9 % (11.7-14.2); RDW Standard Deviation 41.1 fL (35.1-46.3); Red Blood Cell Count 3.69 M/mm3 (4.30-5.90); White Blood Cell Count 5.49 K/mm3 (4.00-11.30)
--- NOTE | 2019-12-26 11:36 | NUR ---
1100 ASSUMED CARE FROM KUSUM IN ICU. PT WAS WHEELED UP PUT IN BED. HE IS QUIET BUT ANSWERES APPROPRIATLY. DAUGHTER WHO IS CG AND OVER HIS CARE IS AT BEDSIDE. PT HAS NO COMPLAINTS AND ASKED TO SLEEP. LAST USED ON WEDNESDAY OF THIS WEEK. CALL LIGHT WITHIN REACH.
--- NOTE | 2019-12-26 11:36 | NUR ---
Report was given. He was transfer via wheelchair with all his belongings and daughter at his side.
[2019-12-26 12:39] LABS: Troponin I <0.015 ng/mL (0.000-0.040)
--- NOTE | 2019-12-26 13:36 | NUR ---
1330 PT IS SLEEPING WITH DAUGHTER AT BEDSIDE. WAKES FOR MEDS THOUGH PREFERS TO SLEEP. PT IS IN NO APPARENT DISTRESS. CALL LIGHT WITHIN REACH.
--- NOTE | 2019-12-27 04:42 | NUR ---
SHIFT SUMMARY ADMITTED FOR BRADYCARDIA. FULL CODE. PLAN IS FOR DC TO [facility] FOR OUTPT TREATMENT TODAY, POSSIBLY RESTART OF HIS HOME METOPROLOL & LISINOPRIL MEDICATION. TELEMETRY: NSR @ 63 BPM W/BBB. HE IS HOMELESS AND HAS DIFFICULTY MANAGING AND TAKING HIS MEDS, HE FORGETS AND MAY ACCIDENTALY DOUBLE HIS MEDS. CARDIOLOGY CONSULT IS JUAN. HE DID REQUEST TO GO OUT AND SMOKE, BUT I EXPLAINED THAT WITH TELEMETRY ON THAT WOULD BE IMPOSSIBLE. I DID PUT ON A FRESH NICOTINE PATCH THIS SHIFT. NO NEW CONCERNS THIS SHIFT
[2019-12-27 05:12] LABS: Anion Gap 5 mmol/L (6-16); Blood Urea Nitrogen 20 mg/dL (8-24); Bun/Creatinine Ratio 16.8 (12.0-20.0); CO2, Blood 25 mmol/L (21-32); Calcium, Blood 8.6 mg/dL (8.5-10.1); Chloride, Blood 111 mmol/L (98-108); Creatinine, Blood 1.19 mg/dL (0.60-1.20); Glomerular Filtration Rate >60 (60-); Glucose, Blood 112 mg/dL (70-99); Potassium, Blood 4.5 mmol/L (3.5-5.5); Sodium, Blood 141 mmol/L (136-145)
[2019-12-27] MEDS ORDERED: ACET325 PO (10:15)
[2019-12-27] MEDS ORDERED: Nicoderm Cq1 EAC1 TOP (10:15)
--- NOTE | 2019-12-27 10:54 | NUR ---
1043 PT DISCHARGED HOME. NURSE EDUCATED PT REGARDING NEW MEDS. ENCOURAGED TO FOLLOW UP WITH [facility]. IV REMOVED, NO SIGNS AND SYMPTOMS OF INFECTION NOTED. PT DRESSED SELF. DAUGHTER PRESENT DURING DISCHARGE. PT WALKED OUT PER HIS REQUEST WITH DAUGHTER.
== END 2019-12-27 10:45 | disposition home or self-care (01) ==
LOC: ER 15:43 → ICUW 15:44 → ICUE 15:44 → MEDS 12-26 11:06
PROVIDERS: Family Medicine; Internal Medicine Cardiovascular Disease; Physician Assistant; ADMIT Family Medicine
DX: I95.2 Hypotension due to drugs (principal); T46.5X5A Adverse effect of other antihypertensive drugs, initial encounter; R00.1 Bradycardia, unspecified; I42.8 Other cardiomyopathies; I44.7 Left bundle-branch block, unspecified; R07.89 Other chest pain; F11.10 Opioid abuse, uncomplicated; F15.10 Other stimulant abuse, uncomplicated; I11.0 Hypertensive heart disease with heart failure; I50.22 Chronic systolic (congestive) heart failure; E78.5 Hyperlipidemia, unspecified; F32.9 Major depressive disorder, single episode, unspecified; F17.229 Nicotine dependence, chewing tobacco, with unspecified nicotine-induced disorders; F17.219 Nicotine dependence, cigarettes, with unspecified nicotine-induced disorders; N17.9 Acute kidney failure, unspecified; D50.9 Iron deficiency anemia, unspecified; N40.0 Benign prostatic hyperplasia without lower urinary tract symptoms; Z88.6 Allergy status to analgesic agent; Z88.8 Allergy status to other drugs, medicaments and biological substances; Z79.899 Other long term (current) drug therapy
CPT/HCPCS: 36415; 71045; 71275; 80048; 80053; 83605; 83735; 83880; 84443; 84484; 85025; 87040; 93005; 93010; 96361; 96365; 96366; 96375; 99285-25; C1751; G0378; J0461; J2060; J3010; J7030; J7060; Q9967

== ENCOUNTER 2020-03-10 20:08 | Emergency (ER) | payer OTHER ==
[~2020-03-10] VITALS: Ht 172.7 cm; Wt 54.4 kg
[~2020-03-10 20:08] MED LIST changes: +ACET325 PO; +CLON.1 PO; +GABA300 PO; +HYDRA50 PO; +Nicoderm Cq1 EAC1 TOP
[2020-03-10 21:09] LABS: BASOPHILS ABSOLUTE AUTO 0.03 K/mm3 (0.00-0.23); BASOPHILS PERCENT AUTO 0 % (0-2); EOSINOPHILS ABSOLUTE AUTO 0.12 K/mm3 (0.00-0.68); EOSINOPHILS PERCENT AUTO 1 % (0-6); Hematocrit 38.8 % (37.0-53.0); Hemoglobin 12.5 g/dL (13.5-17.5); IMMATURE GRAN ABSOLUTE AUTO 0.07 K/mm3 (0.00-0.10); IMMATURE GRAN PERCENT AUTO 1 % (0-1); LYMPHOCYTES ABSOLUTE AUTO 3.03 K/mm3 (0.84-5.20); LYMPHOCYTES PERCENT AUTO 23 % (21-46); MONOCYTES ABSOLUTE AUTO 0.91 K/mm3 (0.16-1.47); MONOCYTES PERCENT AUTO 7 % (4-13); Mean Corpuscular HGB 28.1 pg (26.0-34.0); Mean Corpuscular HGB Conc 32.2 g/dL (31.5-36.5); Mean Corpuscular Volume 87 fL (80-100); Mean Platelet Volume 9.1 fL (9.1-12.4); NEUTROPHILS ABSOLUTE AUTO 9.32 K/mm3 (1.96-9.15); NEUTROPHILS PERCENT AUTO 69 % (41-73); Platelet Count 249 K/mm3 (150-400); RDW Coefficient Variation 13.4 % (11.7-14.2); RDW Standard Deviation 42.3 fL (35.1-46.3); Red Blood Cell Count 4.45 M/mm3 (4.30-5.90); White Blood Cell Count 13.48 K/mm3 (4.00-11.30)
[2020-03-10 21:24] LABS: Alanine Aminotransfer (ALT/SGP 56 U/L (12-78); Albumin, Blood 4.3 g/dL (3.4-5.0); Albumin/Globulin Ratio 1.1 (0.8-1.8); Alk Phos 92 U/L (50-136); Anion Gap 10 mmol/L (6-16); Aspartate Aminotrans (AST/SGOT 41 U/L (12-37); Bilirubin, Total 0.4 mg/dL (0.1-1.0); Blood Urea Nitrogen 16 mg/dL (8-24); Bun/Creatinine Ratio 8.3 (12.0-20.0); CO2, Blood 22 mmol/L (21-32); Calcium, Blood 9.4 mg/dL (8.5-10.1); Chloride, Blood 114 mmol/L (98-108); Creatinine, Blood 1.92 mg/dL (0.60-1.20); Globulin, Blood 3.8 g/dL (2.2-4.0); Glomerular Filtration Rate 39 (60-); Glucose, Blood 98 mg/dL (70-99); Potassium, Blood 3.9 mmol/L (3.5-5.5); Sodium, Blood 146 mmol/L (136-145); Total Protein, Blood 8.1 g/dL (6.4-8.2); Troponin I <0.015 ng/mL (0.000-0.040)
== END 2020-03-11 00:22 | disposition left against medical advice (07) ==
LOC: ER 20:08
PROVIDERS: Emergency Medicine
DX: N17.9 Acute kidney failure, unspecified (principal); I95.9 Hypotension, unspecified; R07.9 Chest pain, unspecified; F32.9 Major depressive disorder, single episode, unspecified; I25.10 Atherosclerotic heart disease of native coronary artery without angina pectoris; I50.9 Heart failure, unspecified; F17.210 Nicotine dependence, cigarettes, uncomplicated; Z79.899 Other long term (current) drug therapy; Z53.20 Procedure and treatment not carried out because of patient's decision for unspecified reasons; Z88.6 Allergy status to analgesic agent; Z88.8 Allergy status to other drugs, medicaments and biological substances
CPT/HCPCS: 36415; 71275; 74175; 80053; 84484; 85025; 93005; 93010; 96374-59; 99285-25; J2405; J7030; Q9967

== ENCOUNTER 2020-03-11 16:14 | Inpatient (IN) | payer OTHER ==
[~2020-03-11] VITALS: Ht 167.6 cm; Wt 67.5 kg
[2020-03-11 16:51] LABS: BASOPHILS ABSOLUTE AUTO 0.02 K/mm3 (0.00-0.23); BASOPHILS PERCENT AUTO 0 % (0-2); EOSINOPHILS ABSOLUTE AUTO 0.12 K/mm3 (0.00-0.68); EOSINOPHILS PERCENT AUTO 1 % (0-6); Hematocrit 35.4 % (37.0-53.0); Hemoglobin 11.4 g/dL (13.5-17.5); IMMATURE GRAN ABSOLUTE AUTO 0.03 K/mm3 (0.00-0.10); IMMATURE GRAN PERCENT AUTO 0 % (0-1); LYMPHOCYTES ABSOLUTE AUTO 2.62 K/mm3 (0.84-5.20); LYMPHOCYTES PERCENT AUTO 30 % (21-46); MONOCYTES ABSOLUTE AUTO 0.76 K/mm3 (0.16-1.47); MONOCYTES PERCENT AUTO 9 % (4-13); Mean Corpuscular HGB 27.9 pg (26.0-34.0); Mean Corpuscular HGB Conc 32.2 g/dL (31.5-36.5); Mean Corpuscular Volume 87 fL (80-100); Mean Platelet Volume 8.7 fL (9.1-12.4); NEUTROPHILS ABSOLUTE AUTO 5.27 K/mm3 (1.96-9.15); NEUTROPHILS PERCENT AUTO 60 % (41-73); Platelet Count 229 K/mm3 (150-400); RDW Coefficient Variation 13.7 % (11.7-14.2); RDW Standard Deviation 42.9 fL (35.1-46.3); Red Blood Cell Count 4.09 M/mm3 (4.30-5.90); White Blood Cell Count 8.82 K/mm3 (4.00-11.30)
[2020-03-11 17:27] LABS: Albumin, Blood 4.3 g/dL (3.4-5.0); Albumin/Globulin Ratio 1.1 (0.8-1.8); Bilirubin, Total 0.6 mg/dL (0.1-1.0); Bun/Creatinine Ratio 8.2 (12.0-20.0); Calcium, Blood 8.9 mg/dL (8.5-10.1); Creatinine, Blood 3.3 mg/dL (0.60-1.20); Globulin, Blood 3.9 g/dL (2.2-4.0); Potassium, Blood 4.1 mmol/L (3.5-5.5); Total Protein, Blood 8.2 g/dL (6.4-8.2)
--- NOTE | 2020-03-11 23:25 | NUR ---
REPORT RECIEVED FROM CLINT (CHANNEL SALES MANAGER) AT 2320 AND AWAITING PT T/F TO ROOM 358.
--- NOTE | 2020-03-11 23:40 | NUR ---
BLADDER SCAN PERFORMED W/ONLY 102 MLS RETAINED. PT HAS NO SENSATION OF NEED TO VOID AND HAS BEEN UNABLE TO VOID X2 DAYS. HE'S ALSO HAD A TERRIBLE APPETITE AND HAS HAD N/V X2 DAYS W/AN INABILITY TO KEEP ANYTHING DOWN. PLAN TO ENCOURAGE PO INTAKE AND MANAGE N/V PRN PER EMAR. PT AWARE THAT URINE SPECIMEN IS NEEDED.
--- NOTE | 2020-03-12 01:25 | NUR ---
RAPID COVID TEST COMPLETED, AWAITING RESULTS.
--- NOTE | 2020-03-12 01:25 | NUR ---
PT IS COVID AND FLU NEGATIVE. HE ALSO HAD HIS FLU VACCINE ALREADY THIS SEASON SO DENIED NEEDING ONE HERE.
[2020-03-12 02:08] LABS: Influenza A, PCR Negative (NEGATIVE); Influenza B, PCR Negative (NEGATIVE); Resp Syncytial Virus, PCR Negative (NEGATIVE); SARS-Cov-2 (COVID-19) PCR, MMC Negative (NEGATIVE)
--- NOTE | 2020-03-12 02:47 | NUR ---
REPORT RECIEVED FROM CLINT (LITHOGRAPHERS PRINTER) AT 2320 AND AWAITING PT T/F TO ROOM 358.
[2020-03-12 04:35] LABS: BASOPHILS ABSOLUTE AUTO 0.02 K/mm3 (0.00-0.23); BASOPHILS PERCENT AUTO 0 % (0-2); EOSINOPHILS ABSOLUTE AUTO 0.19 K/mm3 (0.00-0.68); EOSINOPHILS PERCENT AUTO 3 % (0-6); Hematocrit 34.2 % (37.0-53.0); Hemoglobin 11.1 g/dL (13.5-17.5); IMMATURE GRAN ABSOLUTE AUTO 0.01 K/mm3 (0.00-0.10); IMMATURE GRAN PERCENT AUTO 0 % (0-1); LYMPHOCYTES PERCENT AUTO 39 % (21-46); MONOCYTES ABSOLUTE AUTO 0.54 K/mm3 (0.16-1.47); MONOCYTES PERCENT AUTO 9 % (4-13); Mean Corpuscular HGB 28.2 pg (26.0-34.0); Mean Corpuscular HGB Conc 32.5 g/dL (31.5-36.5); Mean Corpuscular Volume 87 fL (80-100); Mean Platelet Volume 8.6 fL (9.1-12.4); NEUTROPHILS ABSOLUTE AUTO 3.08 K/mm3 (1.96-9.15); NEUTROPHILS PERCENT AUTO 49 % (41-73); Platelet Count 188 K/mm3 (150-400); RDW Coefficient Variation 13.7 % (11.7-14.2); RDW Standard Deviation 43.5 fL (35.1-46.3); Red Blood Cell Count 3.94 M/mm3 (4.30-5.90); White Blood Cell Count 6.24 K/mm3 (4.00-11.30)
[2020-03-12 04:58] LABS: Bun/Creatinine Ratio 11.5 (12.0-20.0); Calcium, Blood 8.7 mg/dL (8.5-10.1); Creatinine, Blood 1.91 mg/dL (0.60-1.20); Potassium, Blood 3.7 mmol/L (3.5-5.5)
--- NOTE | 2020-03-12 06:24 | NUR ---
SUMMARY: PT A/OX4, SPECIFIES NEEDS AND WAS ORIENTED TO ROOM AND CALL SYSTEM. HE DENIED NEEDING AND NAUSEA OR PAIN MEDS DESPITE HAVING SOME ABDO TENDERNESS. HE'S BEEN UNABLE TO VOID X2-3 DAYS AND REPORTS NO BM SINCE 03/09/20. PT REPORTS POOR APPETITE AND INABILITY TO "KEEP ANYTHING DOWN". COVID/FLU TEST WAS COMPLETED THIS SHIFT AND WAS (-). BLADDER SCAN DONE AND SHOWED ONLY 102 MLS RETAINED. UNABLE TO COLLECT URINE SPECIMEN D/T NO VOID THIS SHIFT. HE REFUSED NICOTINE PATCH BUT ADMITS TO SMOKING APPROX 1/2 PACK PER DAY. PT DENIED ANY ADDITIONAL RECREATIONAL DRUG OR ETOH USE AND SAYS HE'S BEEN SOBER FOR 3 MONTHS. HE IS NO LONGER HOMELESS AND STAYS W/HIS MOM. NO ACUTE CHANGES, VSS/AFEBRILE. WCTM AND REPORT TO DAY RN.
[2020-03-12 11:09] LABS: U Amphetamine Screen DETECTED; U Barbituate Screen Not Detected; U Benzodiazapine Screen Not Detected; U Buprenorphine Screen Not Detected; U Cannabinoids Screen Not Detected; U Cocaine Screen Not Detected; U Methadone Screen Not Detected; U Methamphetamine Screen DETECTED; U Opiates Screen DETECTED; U Oxycodone Screen Not Detected; U Phencyclidine Screen Not Detected; U Propoxyphene Screen Not Detected
--- NOTE | 2020-03-12 17:14 | NUR ---
SHIFT SUMMARY PATIENT DENIES NAUSEA AND SHORTNESS OF BREATH. REPORTS ABDOMINAL TENDERNESS. DECLINES PAIN MEDICATION AT THIS TIME. TOLERATING CLEAR LIQUID DIET WELL. UP SBA IN ROOM, USING URINAL AT BEDSIDE. PLEASANT AND COOPERATIVE WITH CARE.
[2020-03-13] MEDS ORDERED: ACET325 PO (04:46)
[2020-03-13] MEDS ORDERED: GABA300 PO (04:47)
[2020-03-13] MEDS ORDERED: Nicoderm Cq1 EAC1 TOP (04:48)
--- NOTE | 2020-03-13 06:11 | NUR ---
SHIFT SUMMARY PT A/O X4 AND HAS BEEN SLEEPING FOR THE MAJORITY OF THE SHIFT. MEDICATED ONCE FOR PAIN. USES THE URINAL IND IN BED. NS RUNNING AT 125/HR. VSS; RESTING QUIETLY IN BED W/CALL LIGHT IN REACH.
[2020-03-13 07:11] LABS: Hematocrit 34.3 % (37.0-53.0); Hemoglobin 10.9 g/dL (13.5-17.5); Mean Corpuscular HGB 28.2 pg (26.0-34.0); Mean Corpuscular HGB Conc 31.8 g/dL (31.5-36.5); Mean Corpuscular Volume 89 fL (80-100); Mean Platelet Volume 8.9 fL (9.1-12.4); Platelet Count 176 K/mm3 (150-400); RDW Coefficient Variation 13.8 % (11.7-14.2); RDW Standard Deviation 44.7 fL (35.1-46.3); Red Blood Cell Count 3.87 M/mm3 (4.30-5.90); White Blood Cell Count 4.29 K/mm3 (4.00-11.30)
[2020-03-13 07:42] LABS: Albumin, Blood 3.3 g/dL (3.4-5.0); Anion Gap 2 mmol/L (6-16); Blood Urea Nitrogen 12 mg/dL (8-24); Bun/Creatinine Ratio 10.3 (12.0-20.0); CO2, Blood 27 mmol/L (21-32); Calcium, Blood 8.6 mg/dL (8.5-10.1); Chloride, Blood 117 mmol/L (98-108); Creatinine, Blood 1.16 mg/dL (0.60-1.20); Glomerular Filtration Rate >60 (60-); Glucose, Blood 81 mg/dL (70-99); Phosphorus, Blood 1.7 mg/dL (2.5-4.9); Potassium, Blood 4.7 mmol/L (3.5-5.5); Sodium, Blood 146 mmol/L (136-145)
[2020-03-13] MEDS ORDERED: MIRALAX17 GM PO (11:04)
[2020-03-13] MEDS ORDERED: SENN187 PO (11:05)
--- NOTE | 2020-03-13 11:29 | NUR ---
DISCHARGE DISCHARGE MEDICATIONS AND INSTRUCTIONS EXPLAINED TO PATIENT. PATIENT STATED UNDERSTANDING. FOLLOW UP W/PCP SCHEDULED. IV RMOVED WITHOUT DIFFICULTY. BELONGINGS WITH PATIENT. PATIENT AMBULATED TO PRIVATE VEHICLE WITHOUT WAITING FOR STAFF ESCORT.
== END 2020-03-13 11:27 | disposition home or self-care (01) | DRG 683 ==
LOC: ER 16:14 → MEDS 21:19
PROVIDERS: Family Medicine; Physician Assistant; ADMIT Family Medicine
DX: N17.9 Acute kidney failure, unspecified (principal); I42.8 Other cardiomyopathies; I50.22 Chronic systolic (congestive) heart failure; Z87.820 Personal history of traumatic brain injury; N26.1 Atrophy of kidney (terminal); D63.1 Anemia in chronic kidney disease; M79.2 Neuralgia and neuritis, unspecified; E86.0 Dehydration; I95.9 Hypotension, unspecified; K59.00 Constipation, unspecified; T50.8X5A Adverse effect of diagnostic agents, initial encounter; Y92.9 Unspecified place or not applicable; K21.9 Gastro-esophageal reflux disease without esophagitis; F17.219 Nicotine dependence, cigarettes, with unspecified nicotine-induced disorders; I11.0 Hypertensive heart disease with heart failure
CPT/HCPCS: 0241U; 36415; 80048; 80053; 80069; 83690; 85025; 85027; 99284; A9270; C9113; J1644; J7030

== ENCOUNTER 2020-08-04 13:49 | Emergency (ER) | payer OTHER ==
[~2020-08-04] VITALS: Ht 172.7 cm; Wt 68.0 kg
[2020-08-04 14:32] LABS: BASOPHILS ABSOLUTE AUTO 0.02 K/mm3 (0.00-0.23); BASOPHILS PERCENT AUTO 0 % (0-2); EOSINOPHILS PERCENT AUTO 0 % (0-6); Hematocrit 35.7 % (37.0-53.0); Hemoglobin 12.4 g/dL (13.5-17.5); IMMATURE GRAN ABSOLUTE AUTO 0.03 K/mm3 (0.00-0.10); IMMATURE GRAN PERCENT AUTO 0 % (0-1); LYMPHOCYTES ABSOLUTE AUTO 1.61 K/mm3 (0.84-5.20); LYMPHOCYTES PERCENT AUTO 15 % (21-46); MONOCYTES ABSOLUTE AUTO 1.13 K/mm3 (0.16-1.47); MONOCYTES PERCENT AUTO 11 % (4-13); Mean Corpuscular HGB 29.6 pg (26.0-34.0); Mean Corpuscular HGB Conc 34.7 g/dL (31.5-36.5); Mean Corpuscular Volume 85 fL (80-100); Mean Platelet Volume 9.3 fL (9.1-12.4); NEUTROPHILS ABSOLUTE AUTO 7.99 K/mm3 (1.96-9.15); NEUTROPHILS PERCENT AUTO 74 % (41-73); Platelet Count 155 K/mm3 (150-400); RDW Standard Deviation 37.6 fL (35.1-46.3); Red Blood Cell Count 4.19 M/mm3 (4.30-5.90); White Blood Cell Count 10.78 K/mm3 (4.00-11.30)
[2020-08-04 15:18] LABS: Alanine Aminotransfer (ALT/SGP 23 U/L (12-78); Albumin, Blood 3.1 g/dL (3.4-5.0); Albumin/Globulin Ratio 0.7 (0.8-1.8); Alk Phos 80 U/L (50-136); Anion Gap 8 mmol/L (6-16); Aspartate Aminotrans (AST/SGOT 15 U/L (12-37); Bilirubin, Total 0.6 mg/dL (0.1-1.0); Blood Urea Nitrogen 12 mg/dL (8-24); Bun/Creatinine Ratio 10.4 (12.0-20.0); CO2, Blood 26 mmol/L (21-32); Calcium, Blood 8.4 mg/dL (8.5-10.1); Chloride, Blood 96 mmol/L (98-108); Creatinine, Blood 1.15 mg/dL (0.60-1.20); Globulin, Blood 4.7 g/dL (2.2-4.0); Glomerular Filtration Rate >60 (60-); Glucose, Blood 110 mg/dL (70-99); Potassium, Blood 3.5 mmol/L (3.5-5.5); Sodium, Blood 130 mmol/L (136-145); Total Protein, Blood 7.8 g/dL (6.4-8.2); Troponin I <0.015 ng/mL (0.000-0.040)
[2020-08-04] MEDS ORDERED: Norco 5-325 Ta1 EACH PO (16:08)
[2020-08-04] MEDS ORDERED: BENZ100A PO (16:08)
== END 2020-08-04 16:24 | disposition home or self-care (01) ==
LOC: ER 13:49
PROVIDERS: Physician Assistant
DX: J06.9 Acute upper respiratory infection, unspecified (principal); R07.89 Other chest pain; F17.210 Nicotine dependence, cigarettes, uncomplicated; Z79.899 Other long term (current) drug therapy; Z88.6 Allergy status to analgesic agent; Z88.8 Allergy status to other drugs, medicaments and biological substances
CPT/HCPCS: 36415; 71045; 80053; 84484; 85025; 93005; 93010; 96374; 96375; 99284-25; A9270-GY; J2270; J2405

== ENCOUNTER → 2021-04-04 | Outpatient (CLI) | payer OTHER ==
[~2021-04-04] MED LIST changes: +CIPR750 PO; +Lisinopril2.5 MG PO
[2021-04-04 20:42] LABS: Bacteria Rare /hpf; Hyaline Casts 0-2 /lpf (0-2); Mucus Light (0-Heavy); Red Blood Cells, Urine 0-2 /hpf (0-2); Squamous Epithelial Cells Rare /hpf (Few); White Blood Cells, Urine 0-2 /hpf (0-5)
== END | disposition home or self-care (01) ==
LOC: LAB 19:35 → LAB SHORT 19:35
PROVIDERS: Family Medicine
DX: R35.0 Frequency of micturition (principal)
CPT/HCPCS: 81015; 87077; 87086; 87186

== ENCOUNTER 2021-09-13 00:20 | Emergency (ER) | payer OTHER ==
[~2021-09-13] VITALS: Ht 172.7 cm; Wt 68.0 kg
[~2021-09-13 00:20] MED LIST changes: +FAMO20 PO
[2021-09-13] MEDS ORDERED: CEPH500 PO (01:38)
[2021-09-13] MEDS ORDERED: Mupirocin22 GM TOP (01:38)
[2021-09-13] MEDS ORDERED: Bactrim Ds Tab1 EACH PO (01:38)
== END 2021-09-13 01:55 | disposition home or self-care (01) ==
LOC: ER 00:20
DX: L01.00 Impetigo, unspecified (principal); F17.210 Nicotine dependence, cigarettes, uncomplicated; Z79.899 Other long term (current) drug therapy
CPT/HCPCS: 99282

== ENCOUNTER 2022-01-20 13:16 | Emergency (ER) | payer OTHER ==
[~2022-01-20] VITALS: Ht 172.7 cm; Wt 72.6 kg
[~2022-01-20 13:16] MED LIST changes: +SULTRIDS PO
== END 2022-01-20 14:42 | disposition home or self-care (01) ==
LOC: ER 13:16
DX: Z46.6 Encounter for fitting and adjustment of urinary device (principal); I11.0 Hypertensive heart disease with heart failure; I50.9 Heart failure, unspecified; F17.210 Nicotine dependence, cigarettes, uncomplicated; F17.220 Nicotine dependence, chewing tobacco, uncomplicated; Z88.8 Allergy status to other drugs, medicaments and biological substances; Z88.5 Allergy status to narcotic agent; Z79.899 Other long term (current) drug therapy
CPT/HCPCS: 99283

== ENCOUNTER 2022-01-22 19:16 | Emergency (ER) | payer OTHER ==
[~2022-01-22] VITALS: Ht 172.7 cm; Wt 73.9 kg
[2022-01-22] MEDS ORDERED: FLUC200 PO (21:08)
[2022-01-22] MEDS ORDERED: SULFAMETHOXAZO1 EAC1 PO (21:10)
[2022-01-22] MEDS ORDERED: TAMS.4ER PO (21:11)
== END 2022-01-22 22:41 | disposition left against medical advice (07) ==
LOC: ER 19:16
DX: R79.9 Abnormal finding of blood chemistry, unspecified (principal); Z53.21 Procedure and treatment not carried out due to patient leaving prior to being seen by health care provider
CPT/HCPCS: 99281